=== PATIENT | male | born 1935 | race Two or more races ===

== ENCOUNTER 2024-04-28 22:25 | Emergency (ER) | payer MEDICARE, MEDICAID, SELFPAY ==
[2024-04-28 22:31] VITALS: BP 157/83; PULSE 81; RESP 18; TEMP 37.3; O2SAT 96; BMI 25.0
[2024-04-28 22:42] VITALS: PULSE 95; RESP 19; O2SAT 98
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
[2024-04-28 23:25] LABS: Bilirubin,Urine Negative (Negative); Blood,Urine Negative (Negative); Clarity,Urine Clear (Clear/Hazy); Collection Type, Urine Clean Catch; Color,Urine Lt-Yellow (Lt Yel-Yel); Glucose, Urine Negative (Negative); Ketones,Urine Negative (Negative); Leukocyte Esterase,Urine Negative (Negative); Nitrite,Urine Negative (Negative); PH,Urine 6.5 (5.0-7.0); Protein,Urine Trace (Neg - Trace); RBC,Urine 1 /hpf (0-3); Specific Gravity,Urine 1.014 (1.001-1.035); Squamous Epithelial Cell,Urine 0 /hpf (0-5); Urobilinogen,Urine Negative mg/dL (0.0-1.0); WBC,Urine 1 /hpf (0-5)
[2024-04-28 23:47] LABS: Basophils # (Auto) 0.1 Thou/mm3 (0.0-0.2); Basophils % (Auto) 1 % (0-2.5); Eosinophils # (Auto) 0.1 Thou/mm3 (0.0-0.5); Eosinophils % (Auto) 2 % (0-10); Hematocrit 39.6 % (41.0-53.0); Hemoglobin 14.2 g/dL (13.5-16.0); Immature Granulocytes % (Auto) 0 % (0-0); Immature Granulocytes Auto 0.02 Thou/mm3 (0.00-0.00); Lymphocytes # (Auto) 1.5 Thou/mm3 (1.0-4.8); Lymphocytes % (Auto) 18 % (10-50); Mean Corpuscular HGB Conc 35.9 g/dl (31.0-37.0); Mean Corpuscular Hemoglobin 31.1 pg (25.0-35.0); Mean Corpuscular Volume 87 fL (80-100); Monocytes # (Auto) 0.7 Thou/mm3 (0.0-0.8); Monocytes % (Auto) 8 % (0-12); Neutrophils # (Auto) 6.2 Thou/mm3 (1.8-7.7); Neutrophils % (Auto) 72 % (37-80); Nucleated Red Blood Cell % 0 /100 WBC (0); Platelet Count 186 Thou/mm3 (140-440); RDW Standard Deviation 40.1 fL (35.1-43.9); Red Blood Count 4.57 Miln/mm3 (4.50-5.90); White Blood Count 8.7 Thou/mm3 (3.8-10.6)
--- NOTE | 2024-04-28 23:53 | PC.NURSE ---
Pt given sandwich, juice, pudding and water. Tolerating well.
[2024-04-28 23:59] LABS: Alanine Aminotransferase 18 U/L (10-49); Albumin, Serum 4.6 gm/dL (3.4-4.8); Albumin/Globulin Ratio 1.6 (1.2-2.2); Alkaline Phosphatase 83 U/L (46-116); Anion Gap 9 (7-16); Aspartate Amino Transferase 24 U/L (0-34); BUN/Creatinine Ratio 16 Ratio (12-20); Bilirubin,Total 0.5 mg/dL (0.3-1.2); Blood Urea Nitrogen 13 mg/dL (9-23); Calcium 10.2 mg/dL (8.3-10.6); Calcium (Corrected) 10.2 mg/dL (8.5-10.1); Carbon Dioxide 26.4 mMol/L (20.0-31.0); Chloride 104 mMol/L (98-107); Creatinine (Component) 0.8 mg/dL (0.6-1.3); Estimated Creatinine Clearance 55.5 mL/min (>60); Globulin 2.8 gm/dL (2.3-3.5); Glucose 106 mg/dL (74-106); Osmolality,Calculated 277 (275-295); Potassium 3.6 mMol/L (3.4-5.1); Sodium 139 mMol/L (136-145); Total Protein 7.4 gm/dL (5.7-8.2); eGFR > 60 See Note
--- NOTE | 2024-04-29 00:31 | PC.NURSE ---
Pt asking why he is here, asked if he was going to shelter. Reassured pt that he is not going to shelter and that he will be sleeping here tonight to keep him safe. Pt given warm blankets and is now resting.
[2024-04-29 00:42] LABS: Alcohol, Urine Negative (Negative); Amphetamine/Methamp Scrn,U Negative (Negative); Barbiturate Screen,Urine Negative (Negative); Benzodiazepines Screen,Urine Negative (Negative); Benzoylecgonine Screen, Ur Negative (Negative); Fentanyl Screen,Urine Negative (Negative); Opiate Screen,Urine Negative (Negative); THC Screen,Urine Negative (Negative)
[2024-04-29 05:20] VITALS: BP 174/66; PULSE 73; RESP 18; TEMP 36.7; O2SAT 95
[2024-04-29 06:38] LABS: Amylase 94 U/L (30-118); Lipase 41 U/L (12-53)
[2024-04-29 08:21] VITALS: BP 166/75; BP 167/73; PULSE 54; RESP 16; TEMP 36.3; O2SAT 99
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
--- NOTE | 2024-04-29 09:43 | EDNOTE_ITS ---
Emergency Room Addendum Addendum Narrative: Patient was signed out to me from Dr. dangelo at 6:00 this morning pending mental health evaluation. She added that the patient has been medically cleared by her to see mental health. Please see her note. CBC unremarkable. CMP and lipase negative. U tox negative. UA negative. Alcohol negative. 9:40 AM, hubert child welfare social worker/mental health cytogenetic technologist told me that the patient can go home. He had already made arrangement with the patient's daughter she will come and pick him up from here. The patient's daughter requested medication to relax the patient while in care home. And I agree to 1 mg of Ativan by mouth. Patient is alert awake oriented x 4 GCS of 15 and answer question well. Hubert also added that the patient has an appointment to see his neurologist next week. Hubert also DC 5150 Diagnosis: Dementia 5150 cleared Condition: Stable and improved DC instruction: The patient will be discharged home. Daughter will be driving him. Follow-up with his medical doctor and or neurologist. Return the nearest ER for any problem
[2024-04-29] MEDS: LORazepam 0.5 MG TABLET 1 MG PO (10:06)
[2024-04-29 10:20] VITALS: BP 162/72; PULSE 56; RESP 18; TEMP 36.5; O2SAT 97
[2024-04-29 12:05] VITALS: BP 166/70; PULSE 60; RESP 14; TEMP 36.4; O2SAT 98
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
--- NOTE | 2024-05-01 14:53 | PC.CC ---
Pts chart accessed to update crisis stats and logs.
== END 2024-04-29 12:05 | disposition home or self-care (01) ==
PROVIDERS: Emergency Medicine; Emergency Provider Emergency Medicine
DX: F03.90 Unspecified dementia, unspecified severity, without behavioral disturbance, psychotic disturbance, mood disturbance, and anxiety (principal)
CPT/HCPCS: 36415; 80053; 80307; 80320; 81001; 82150; 83690; 85025; 96127; 99284; A9270; G0480

== ENCOUNTER 2025-01-10 01:40 | Inpatient (IN) | payer MEDICARE, MEDICAID, SELFPAY ==
[2025-01-10] VITALS (13 sets, daily range): BP systolic 128–165; BP diastolic 53–76; PULSE 51–97; RESP 14–96; TEMP 36.1–36.9; O2SAT 91–98; BMI 21.5
--- NOTE | 2025-01-10 01:41 | PD.EDPSYCH ---
ED Psych RME/HPI General Chief Complaint: Suicidal Stated Complaint: MENTAL EVALUATION Time Seen by Provider: 01/10/25 02:12 Arrival date/time: 01/10/25 01:40 RME / HPI RME / HPI Narrative: See [facility] for Dr. Davis's HPI documentation. Related Data Home Medications ?Medication ?Instructions ?Recorded ?Confirmed nitrofurantoin 100 mg PO Q12H 01/10/25 01/10/25 monohydrate/macrocrystals 100 mg capsule phenazopyridine 100 mg tablet 100 mg PO Q8H PRN bladder pain 01/10/25 01/10/25 Allergies Allergy/AdvReac Type Severity Reaction Status Date / Time No Known Allergies Allergy Verified 07/12/19 09:15 Review of Systems Review of Systems Systems Reviewed: All systems reviewed, normal except as documented Past Medical History Past Medical History NEUROLOGIC: Positive Neurological Disorders, Dementia and Head Trauma (2004); Negative Seizures CARDIAC: Positive Cardiac Disorders and Heart Murmur; Negative Congestive Heart Failure RESPIRATORY: Negative Chronic Obstructive Pulmonary Disease (COPD) GASTROINTESTINAL: Positive Gastrointestinal Disorders and Gastroesophageal Reflux Disease GENITOURINARY: Negative Genitourinary Disorders or Renal Disease MUSCULOSKELETAL: Negative Musculoskeletal Disorders ENT: Positive Cataracts and Head Trauma (2004) ENDOCRINE: Negative Endocrine Disorders, Diabetes Mellitus Type 1 or Diabetes Mellitus Type 2 HEMATOLOGIC: Negative Blood Disorders or Clotting Problems OTHER HISTORY: Negative Hospitalization, Autoimmune Disease, Shingles, Blood Transfusions, Blood Transfusion Reaction, Anesthesia Reactions, MRSA, Vancomycin-Resistant Enterococci or Cancer Family History FAMILY HISTORY: Positive Family Surgery; Negative Family Psychiatric Problems, Family Respiratory Disorders, Family Cardiac Disorders or Family Cancer Surgical History SURGICAL: Positive Eye Surgery (cataract); Negative Endocrine Surgery, Abdominal Surgery, Nephrectomy, Joint Replacement, Neurologic Surgery or Vasectomy Social History SMOKING STATUS: Former smoker ED Exam Narrative Physical exam: See [facility] for Dr. Davis's physical exam documentation. Course Quality Measures none Orders Category Date Time Status Admit to Inpatient Status Routine Admission 01/10/25 11:03 Active Patient Condition Routine Admission 01/10/25 12:26 Ordered Bedside COVID-19 Antigen Test NOW Care 01/10/25 01:49 Active Bedside Influenza A&B Antigen Test NOW Care 01/10/25 01:49 Completed Decorative Engraver Apprentice Q4H START 00 Care 01/10/25 11:53 Active EKG (ED ONLY) *Do not use* NOW Care 01/10/25 01:51 Completed [place] to [place] Routine Care 01/10/25 05:17 Ordered Notify provider NEEDED Care 01/10/25 12:26 Active Saline [Insert IV] NOW Care 01/10/25 01:49 Active Straight [In and Out Catheter] X1 Care 01/10/25 01:49 Completed Strict Intake and Output Routine Care 01/10/25 12:36 Ordered Referral Physical Therapy Stat Cons 01/10/25 07:41 Completed Diet Renal Diet 01/10/[address] chest abdomen pelvis wo Stat Exams 01/10/25 01:[address] head/brain wo con Stat Exams 01/10/25 09:[address] lumbar spine wo con Stat Exams 01/10/25 01:51 Completed EKG (ED Only) Stat Exams 01/10/25 01:51 Ordered XR chest 1V portable Stat Exams 01/10/25 01:51 Completed Acetaminophen Stat Lab 01/10/25 02:12 Completed Alcohol, Blood Medical Stat Lab 01/10/25 02:12 Completed BNP [B-Type Natriuretic Peptide] Stat Lab 01/10/25 02:09 Completed Beta Hydroxybutyrate Stat Lab 01/10/25 02:12 Completed Bilirubin,Direct Stat Lab 01/10/25 02:12 Completed Blood Culture (Lab) Stat Lab 01/10/25 02:09 Received CBC AM DRAW Lab 01/11/25 05:00 Ordered CBC AM DRAW Lab 01/12/25 05:00 Ordered CBC AM DRAW Lab 01/13/25 05:00 Ordered CBC AM DRAW Lab 01/14/25 05:00 Ordered CBC AM DRAW Lab 01/15/25 05:00 Ordered CBC Stat Lab 01/10/25 02:09 Completed CMP [Comprehensive Metabolic Panel] Stat Lab 01/10/25 02:12 Completed CRP [C-Reactive Protein] Stat Lab 01/10/25 02:12 Completed Comprehensive Metabolic Panel AM DRAW Lab 01/11/25 05:00 Ordered Comprehensive Metabolic Panel AM DRAW Lab 01/12/25 05:00 Ordered Comprehensive Metabolic Panel AM DRAW Lab 01/13/25 05:00 Ordered Comprehensive Metabolic Panel AM DRAW Lab 01/14/25 05:00 Ordered Comprehensive Metabolic Panel AM DRAW Lab 01/15/25 05:00 Ordered Drug Screen,Urine Stat Lab 01/10/25 02:29 Completed ESR [Sed Rate (ESR)] Stat Lab 01/10/25 02:09 Completed Free T3 Stat Lab 01/10/25 02:12 Completed Free T4 (Free Thyroxine) Stat Lab 01/10/25 02:12 Completed Lactate (Lactic Acid) Stat Lab 01/10/25 02:12 Completed Lipase Stat Lab 01/10/25 02:12 Completed Magnesium AM DRAW Lab 01/11/25 05:00 Ordered Magnesium AM DRAW Lab 01/12/25 05:00 Ordered Magnesium AM DRAW Lab 01/13/25 05:00 Ordered Magnesium AM DRAW Lab 01/14/25 05:00 Ordered Magnesium AM DRAW Lab 01/15/25 05:00 Ordered Magnesium Stat Lab 01/10/25 02:12 Completed Phosphorous AM DRAW Lab 01/11/25 05:00 Ordered Phosphorous AM DRAW Lab 01/12/25 05:00 Ordered Phosphorous AM DRAW Lab 01/13/25 05:00 Ordered Procalcitonin Stat Lab 01/10/25 02:12 Completed Salicylate Stat Lab 01/10/25 02:12 Completed TSH [Thyroid Stimulating Hormone] Stat Lab 01/10/25 02:12 Completed Troponin I Stat Lab 01/10/25 02:12 Completed UA, C/S IF [Urinalysis, C/S if Indicated] Stat Lab 01/10/25 02:29 Completed Urine Culture Stat Lab 01/10/25 02:29 Received Acetaminophen Tab [Tylenol Tab] Med 01/10/25 12:36 Active 650 mg PO Q6H PRN Acetaminophen Tab [Tylenol Tab] Med 01/10/25 12:36 Active 650 mg PO Q6H PRN Ondansetron Inj [Zofran Inj] Med 01/10/25 12:36 Active 4 mg IVP Q6H PRN Sodium Chloride 0.9% 1000 ml [Ns] 1,000 ml Med 01/10/25 12:45 Active IV 75 mls/hr Sodium Chloride 0.9% 1000 ml [Ns] 1,000 ml Med 01/10/25 01:50 Discontinued IV 999 mls/hr Sodium Chloride 0.9% 1000 ml [Ns] 1,000 ml Med 01/10/25 09:33 Discontinued IV 999 mls/hr cefTRIAXone/D5w 1gm IV premix [Rocephin/D5w 1gm IV Med 01/10/25 09:33 Discontinued premix] 1 gm in 50 ml IV X1 Code Status Routine Oth 01/10/25 12:26 Ordered Late Tray Request Routine Oth 01/10/25 09:20 Active Oxygen Delivery DAILY RT 01/10/25 12:38 Active Referral Rocket Engine Tester NOW 01/10/25 07:40 Active Vital Signs Vital signs: Vital Signs Temperature 97.7 F 01/10/25 01:44 Pulse Rate 68 01/10/25 01:44 Respiratory Rate 18 01/10/25 01:44 Blood Pressure 162/74 H 01/10/25 01:44 Pulse Oximetry (%) 94 L 01/10/25 01:44 Oxygen Delivery Method Room Air 01/10/25 01:44 Psych MDM Narrative MDM Narrative:: This section includes all my notes and documentations, including HPI, PE, and ED course. Addison Davis MD HPI: 89yo male with a history of dementia BIBA from home here for aggressive behavior for several days.. Tonight, daughter found the patient with a belt around his neck. No other obvious complaints. Can't obtain history from the patient due to dementia. Daughter is not present. ROS: Can't obtain history from the patient due to dementia. Physical Exam: General: Alert and oriented X 1. No acute distress when remaining still. Eyes: Conjunctivae and lids clear. PERRL. EOMI. ENT: No nasal congestion. Neck: Supple. Heart: RRR. Lungs: No respiratory distress. Good air movement. No rhonchi, wheezing, rales. Abdomen: Soft and nontender. Normal bowel sounds. No distension. No rebound or guarding. Back: No tenderness. Skin: Warm and dry. Neuro: Alert and oriented X 3. Cranial nerves II through XII grossly normal. No peripheral motor deficits. I reviewed EMS notes. I reviewed all diagnostic test results. My interpretation of the EKG is sinus rhythm with nonspecific changes. My interpretation of the chest x-ray is increased bronchial markings. Blood tests remarkable for WBC 12.7, ESR 31, Creatinine 5.3, CRP 8.7. UA remarkble for positive nitrites, positive leukocyte esterase, 917 RBCs, 6 WBCs, and rare bacteria. At this point, diagnoses include: Suicidal behavior JAMEY UTI Dementia Treatment here included: IV fluid I discussed the case with our wooden frame builder (Dr. Barnse). About the presentation and exam and diagnostics and treatments here. And possible need of further care in the hospital. Recommended admission to hospitalist service with indwelling Rincon. CT scans are pending At 6 AM on 01/10/2025, the care of the patient was transferred to Dr. Pedroza. Addison Davis MD Patient data External records reviewed:: [facility] previous records (Per chart review, patient was seen here on 04/29/24 for abdominal pain.) and EMS form Clinical information provided by:: patient Social determinants that could affect healthcare access:: none Patient has the following chronic illnesses:: dementia How is presenting disease/condition affected by chronic disease/condition?: exacerbated by Evaluation data The following diagnostics were reviewed and interpreted by me:: lab results, radiology exam(s) and EKG tracing(s) (My interpretation of the EKG is: Sinus rhythm (66 bpm) with nonspecific ST-T changes. Addison Davis MD) Lab and/or radiology exams considered but not ordered:: none Interpretation Summary: I reviewed all diagnostic test results. My interpretation of the EKG is sinus rhythm with nonspecific changes. My interpretation of the chest x-ray is increased bronchial markings. Blood tests remarkable for WBC 12.7, ESR 31, Creatinine 5.3, CRP 8.7. UA remarkble for positive nitrites, positive leukocyte esterase, 917 RBCs, 6 WBCs, and rare bacteria. CT scans are pending. Medications / Prescriptions Medications or Prescriptions considered but not ordered:: none Medication administrations:: Medication Administration History Acetaminophen (Acetaminophen 325 Mg Tablet) 650 mg PO Q6H PRN PRN Reason: Fever >101.5 Stop: 02/09/25 12:35 Acetaminophen (Acetaminophen 325 Mg Tablet) 650 mg PO Q6H PRN PRN Reason: PAIN SCALE 1-3 (mild Stop: 02/09/25 12:35 Finasteride (Finasteride 5 Mg Tablet) 5 mg PO QDAY GWENDOLYN Stop: 02/09/25 12:44 Last Admin: 01/10/25 13:32 Dose: 5 mg Documented By: PATRICIA Sodium Chloride (Ns) 1,000 mls @ 75 mls/hr IV .[id number] GWENDOLYN Stop: 02/09/25 12:44 Last Admin: 01/10/25 13:32 Dose: 75 mls/hr Documented By: PATRICIA Ceftriaxone Sodium/Dextrose (Rocephin/D5w 1gm Iv Premix) 1 gm in 50 mls @ 100 mls/hr IV QDAY GWENDOLYN Stop: 01/18/25 08:59 Ondansetron HCl (Ondansetron Inj 2 Mg/Ml Inj 2 Ml) 4 mg IVP Q6H PRN; Protocol PRN Reason: NAUSEA OR VOMITING Stop: 02/09/25 12:35 Tamsulosin HCl (Tamsulosin Hcl 0.4 Mg Capsule) 0.4 mg PO QDAY GWENDOLYN Stop: 02/09/25 12:44 Last Admin: 01/10/25 13:32 Dose: 0.4 mg Documented By: [email or web address] Discontinued Medications Sodium Chloride (Ns) 1,000 mls @ 999 mls/hr IV .Q1H1M ONE Stop: 01/10/25 02:50 Last Infusion: 01/10/25 03:30 Dose: Infused Documented By: Admin: 01/10/25 02:22 Dose: 999 mls/hr Documented By: ENMANUEL Sodium Chloride (Ns) 1,000 mls @ 999 mls/hr IV .Q1H1M ONE Stop: 01/10/25 10:33 Last Infusion: 01/10/25 12:10 Dose: Infused Documented By: Admin: 01/10/25 11:06 Dose: 999 mls/hr Documented By: TITA Ceftriaxone Sodium/Dextrose (Rocephin/D5w 1gm Iv Premix) 1 gm in 50 mls @ 100 mls/hr IV X1 ONE Stop: 01/10/25 10:02 Last Infusion: 01/10/25 11:40 Dose: Infused Documented By: Admin: 01/10/25 11:05 Dose: 100 mls/hr Documented By: TITA From ks, patient received IV fluid. Consultations Consultation(s) initiated? (list below): Yes Consultation #1 (Physician, Specialty, Details): I discussed the case with our wooden frame builder (Dr. Barnes). About the presentation and exam and diagnostics and treatments here. And possible need of further care in the hospital. Recommended admission to hospitalist service with indwelling [place]. Diagnosis Psych Differential Diagnosis: acute psychosis, chronic schizophrenia, suicidal ideation, bipolar disorder, depression, drug-induced psychotic disorder and acute anxiety Most likely diagnosis given after review of the tests above:: At this point, diagnoses include: Suicidal behavior JAMEY UTI Dementia Admission Indicated Admission indicated?: not indicated Explain why admission is indicated or not indicated:: CT scans are pending. Admission Request Was there a request for admission?: No Disposition Plan Disposition Plan: other (specify) (Signed out to Dr. Pedroza at 6 AM.) Discharge Plan Plan Patient Disposition: Admit Acute Care w/in Hospital Problem List Clinical Impression: JAMEY (acute kidney injury), Suicidal behavior, Dehydration, Acute UTI
--- NOTE | 2025-01-10 01:51 | EKG_ITS ---
[facility] Test Date: 2025-01-10 Pat Name: CLOVER FRY Department: Room: - Gender: Male Track Grinder: : 1935 Requested By: Addison Riddle Order Number: [id number] Reading MD: Addison Riddle Measurements Intervals [place] Rate: 66 P: 51 NE: 159 QRS: -39 QRSD: 112 T: 74 QT: 428 QTc: 449 Interpretive Statements SINUS RHYTHM POSSIBLE LEFT ATRIAL ENLARGEMENT [-0.1mV P-WAVE IN V1/V2] LEFT AXIS DEVIATION [QRS AXIS < -30] POSSIBLE LEFT VENTRICULAR HYPERTROPHY [VOLTAGE CRITERIA PLUS LAE OR QRS WIDENING] Compared to ECG 07/12/2019 09:49:37 Sinus bradycardia no longer present ST (T wave) deviation no longer present /store/S0/[id number]/ecg/[id number].pdf
--- NOTE | 2025-01-10 01:51 | XR_ITS ---
Examination: CT chest, without intravenous contrast. CT abdomen, without intravenous contrast. CT pelvis, without intravenous contrast. 2-D sagittal and coronal reconstructions. 3-D reconstructions. Date and time of exam:January 10, 2025 0426 hours INDICATIONS: Chest abdominal pain today altered mental status CTDI vol (mgy) 7.94 DLP (MGycm)587 Technique: Multiple CT images, 3.0 mm slice thickness, obtained chest, abdomen, pelvis, with the high-resolution 64 slice scanner.. Sagittal and coronal 2-D reconstructions are obtained. 3-D reconstructions Low dose protocols were performed. One or more of the following dose reduction techniques were used; automated exposure control, adjustment of the mA and/or KV according to patient size, use of iterative reconstruction technique. Findings: Thoracic aortic calcification no aneurysmal dilatation Pulmonary artery segments are not enlarged. No pneumonia, pulmonary edema or pleural disease. No visualized liver or splenic lesion Suspicious for gallstones No pancreatic mass Mild to moderate bilateral hydronephrosis with perinephric stranding Aorta calcification no aneurysmal dilatation No pericecal inflammatory change Distended urinary bladder Abnormal prostate, enlarged AP dimension 6.3 cm with irregular contour IMPRESSION: No pneumonia pulmonary edema or pleural disease Recommend hepatobiliary sonography to confirm gallstones Mild to moderate hydronephrosis likely secondary to markedly distended urinary bladder Marked prostatomegaly which may be producing the urinary bladder versus vesicoureteral reflux and urinary tract infection, clinical correlation advised
--- NOTE | 2025-01-10 01:51 | XR_ITS ---
Examination: AP chest single view TECHNIQUE: AP portable semiupright chest single view Date and time: January 10, 2025 1444 hours INDICATIONS: Shortness of breath today. FINDINGS: Mild accentuation bronchovascular markings. Normal heart size. Mild prominent central pulmonary arteries Prominent osteopenia IMPRESSION: Basilar bronchitis pattern
--- NOTE | 2025-01-10 01:51 | XR_ITS ---
Examination: CT lumbar spine, without contrast. 2-D sagittal reconstructions. 2-D coronal reconstructions. 3-D reconstructions. Date and time of exam:January 10, 2025 0427 hours INDICATIONS: Onset back pain this week CTDI: vol (mGy):22.7 DLP: (mGycm):584 Technique: Multiple 1.25 mm axial sections of the lumbar spine without intravenous contrast. have been obtained. 2-D sagittal and coronal reconstructions have been obtained. 3-D reconstructions have been obtained. Low dose protocols were performed. One or more of the following dose reduction techniques were used; automated exposure control, adjustment of the mA and/or KV according to patient size, use of iterative reconstruction technique. Findings: No lumbar fracture. Severe osteopenia. Advanced degenerative disc disease diffusely L5-S1 3 mm central lumbar disc bulge L4-L5 severe overall spinal stenosis, axial image 79, 4 mm central lumbar disc bulge, facet arthropathy and thickening of ligamentum flavum with severe left L4 ganglionic compression L3-L4 mild bilateral L3 ganglionic compression secondary to neural foraminal stenosis IMPRESSION: No acute lumbar fracture L4-L5 severe overall spinal stenosis L3-L4 mild bilateral L3 ganglionic compression
[2025-01-10] MEDS: SODIUM CHLORIDE 0.9% 1000 ML 1,000 ML 999 ML IV ×2 (02:22→11:06)
[2025-01-10 02:23] LABS: Lactate (Lactic Acid) 1.0 mMol/L (0.4-2.0)
[2025-01-10 02:25] LABS: Beta Hydroxybutyrate 0.4 mmol/L (<0.6)
[2025-01-10 02:25] LABS: Basophils # (Auto) 0.0 Thou/mm3 (0.0-0.2); Basophils % (Auto) 0 % (0-2.5); Eosinophils # (Auto) 0.2 Thou/mm3 (0.0-0.5); Eosinophils % (Auto) 2 % (0-10); Hematocrit 38.7 % (41.0-53.0); Hemoglobin 13.5 g/dL (13.5-16.0); Immature Granulocytes Auto 0.06 Thou/mm3 (0.00-0.00); Lymphocytes # (Auto) 1.3 Thou/mm3 (1.0-4.8); Lymphocytes % (Auto) 11 % (10-50); Mean Corpuscular HGB Conc 34.9 g/dl (31.0-37.0); Mean Corpuscular Hemoglobin 31.2 pg (25.0-35.0); Mean Corpuscular Volume 89 fL (80-100); Monocytes # (Auto) 1.4 Thou/mm3 (0.0-0.8); Monocytes % (Auto) 11 % (0-12); Neutrophils # (Auto) 9.6 Thou/mm3 (1.8-7.7); Neutrophils % (Auto) 76 % (37-80); Nucleated Red Blood Cell # 0.00 Thou/mm3 (0.00-0.00); Nucleated Red Blood Cell % 0 /100 WBC (0); Platelet Count 138 Thou/mm3 (140-440); RDW Standard Deviation 41.4 fL (35.1-43.9); Red Blood Count 4.33 Miln/mm3 (4.50-5.90); White Blood Count 12.7 Thou/mm3 (3.8-10.6)
[2025-01-10 02:34] LABS: Sed Rate (ESR) 31 mm/hr (0-20)
[2025-01-10 02:36] LABS: Collection Type, Urine Clean Catch; Squamous Epithelial Cell,Urine 0 /hpf (0-5)
[2025-01-10 02:46] LABS: Bacteria,Urine Rare; Bilirubin,Urine Negative (Negative); Blood,Urine 3+ (Negative); Clarity,Urine Turbid (Clear/Hazy); Color,Urine Drk-Yellow (Lt Yel-Yel); Glucose, Urine Negative (Negative); Ketones,Urine Negative (Negative); Leukocyte Esterase,Urine Positive (Negative); Nitrite,Urine Positive (Negative); PH,Urine 5.5 (5.0-7.0); Protein,Urine Trace (Neg - Trace); RBC,Urine 917 /hpf (0-3); Specific Gravity,Urine 1.016 (1.001-1.035); Urobilinogen,Urine Negative mg/dL (0.0-1.0); WBC,Urine 6 /hpf (0-5)
[2025-01-10 02:47] LABS: Culture Indicated,Urine Yes
[2025-01-10 02:50] LABS: B-Type Natriuretic Peptide 57 pg/mL (0-100)
[2025-01-10 02:51] LABS: Acetaminophen < 2.0 mcg/mL (10.0-20.0); Alanine Aminotransferase 27 U/L (10-49); Albumin, Serum 4.2 gm/dL (3.4-4.8); Albumin/Globulin Ratio 1.8 (1.2-2.2); Alcohol, Blood Medical < 3.0 mg/dL (0-10.0); Alkaline Phosphatase 78 U/L (46-116); Anion Gap 15 (7-16); Aspartate Amino Transferase 20 U/L (0-34); BUN/Creatinine Ratio 10 Ratio (12-20); Bilirubin,Direct 0.4 mg/dL (0.0-0.3); Bilirubin,Total 1.2 mg/dL (0.3-1.2); Blood Urea Nitrogen 52 mg/dL (9-23); C-Reactive Protein 8.7 mg/dL (0.0-0.9); Calcium 9.3 mg/dL (8.3-10.6); Calcium (Corrected) 9.3 mg/dL (8.5-10.1); Carbon Dioxide 24.2 mMol/L (20.0-31.0); Chloride 97 mMol/L (98-107); Creatinine (Component) 5.3 mg/dL (0.6-1.3); Globulin 2.4 gm/dL (2.3-3.5); Glucose 133 mg/dL (74-106); Lipase 28 U/L (12-53); Magnesium 2.4 mg/dL (1.6-2.6); Osmolality,Calculated 287 (275-295); Potassium 3.8 mMol/L (3.4-5.1); Procalcitonin 0.19 ng/ml (0.0-0.49); Salicylate < 3.0 mg/dL; Sodium 136 mMol/L (136-145); Thyroid Stimulating Hormone 0.46 uIU/mL (0.55-4.78); Total Protein 6.6 gm/dL (5.7-8.2); Troponin I < 0.020 ng/mL (0.0-0.045); eGFR 10 See Note
[2025-01-10 03:00] LABS: Amphetamine/Methamp Scrn,U Negative (Negative); Barbiturate Screen,Urine Negative (Negative); Benzodiazepines Screen,Urine Negative (Negative); Benzoylecgonine Screen, Ur Negative (Negative); Fentanyl Screen,Urine Negative (Negative); Opiate Screen,Urine Negative (Negative); THC Screen,Urine Negative (Negative)
[2025-01-10 03:32] LABS: Free T3 2.0 pg/mL (2.3-4.2); Free T4 (Free Thyroxine) 1.67 ng/dL (0.89-1.76)
--- NOTE | 2025-01-10 07:41 | EDNOTE_ITS ---
Emergency Room Addendum <Chana Pedroza MD - Last Filed: 01/10/25 07:43> Addendum Narrative: Patient was pending placement in [place] however this was assisted living and patient is in need of dementia care. Plan for placement locally in appropriate facility for patient needs. <Manasa [place] - Last Filed: 01/10/25 11:55> Addendum Narrative: 0600: Care assumed from Dr. Davis, the previous shift emergency physician. Past medical, surgical, social and family history reviewed. Vitals and home medications reviewed. I will assume the care of the patient at this time, [facility] social worker consultation for SNF placement. Please refer to the emergency department record for history and examination from initial visit.?The following addendum documentation note is intended to reflect any pending information, findings, or radiology results not included in the patient?s initial chart. Patient was pending placement in [place] however this was assisted living and patient is in need of dementia care. Plan for placement locally in appropriate facility for patient needs. I reviewed patients labs and appears to have a UTI and JAMEY; creatinine 5.3, BUN 52, eGFR 10. I spoke with residents working with hospitalist Dr. Goddard. Discussed patients PMHx, HPI, ED course, exam findings, labs, and radiology results. The hospitalist agree to accept the patient for admission.
--- NOTE | 2025-01-10 08:59 | PC.NURSE ---
Patient lying in gurney quietly, not answering all questions appropriately, daughterMelissa at bedside states she called and ambulance because patient was threatening to choke with his belt because he got upset with her. Per Melissa states patient lives in [place] alone and has a careprovider who checks in on him. Per daughter states she brought him to her house for a visit, Per Daughter states patient has h/o dementia and stays up all night. Currenlty patient alert to person and who his daughter is but not alert to place or time, patient denies pain, denies SI and HI, does not know why he is here. Skin is cool dry and pink. S/S aware of consult and daughter requesting to speak with s/s. 1:[address] for patient safety.
--- NOTE | 2025-01-10 09:21 | PC.NURSE ---
PT at bedside for evaluation
--- NOTE | 2025-01-10 09:24 | XR_ITS ---
Examination: CT brain head without contrast. 2-D sagittal coronal reconstructions Date and time of exam:January 10, 2025, 1005 hours, comparison March 11, 2018 CTDI: vol (mGy):51 DLP: (mGycm):994 Technique: Multiple CT axial sections of the brain have been obtained, 5 mm slice thickness. Contrast has not been administered. 2-D sagittal, coronal reconstructions have been obtained Low dose protocols were performed. One or more of the following dose reduction techniques were used; automated exposure control, adjustment of the mA and/or KV according to patient size, use of iterative reconstruction technique. Findings: Mild to moderate ventricular enlargement. Intra-axial or extra-axial hemorrhage density is not seen. No mass effect or midline shift Basal cisterns are not remarkable. Fourth ventricle is midline. Cranial vault intact. Impression: Negative for acute hemorrhage, mass effect or midline shift Advise clinical correlation and follow-up accordingly
--- NOTE | 2025-01-10 09:27 | PC.NURSE ---
Dr. Pedroza talking with patients daughter, stacia about patient being admitted to the hospital.
--- NOTE | 2025-01-10 11:02 | PC.CC ---
ASW completed an initial assessment with pt and pts decision maker/daughter at bedside Cherelle Hernandez [phone]. ASW explained to pt and daughter that pt will be admitted to the hospital and necessary questions will be asked in order to prepare pt for d/c when ready. Pt and Cherelle understood. Pt identified his daughter Cherelle as his point of contact and decision maker. Pt reported he resides in [place] and lives on his own. Pt states he receives SS services and gets 100 hours a month. Cherelle reports the pt is diagnosed with dementia and is needing SNF placement upon d/c from [facility]. Cherelle reported she was in the process of an assisted living facility in [place], but after the high cost per month and deciding that assisted living was not appropriate for the pt, she and pt changed their mind about possibly placing the pt in the [place] facility. Pt and daughter Cherelle would like to be placed in a facility located in [place], specifically requested [facility]. Cherelle provided copies of Power of Insurance Loss Control Surveyor, Advanced Directive and ASW placed the documents in the pts chart. Cherelle also provided insurance information and pts current PCP information. Pt sees [facility] for Neurology services and his pharmacy is also located with [facility] [place] ([place]). Pt is a DNR code and the pts daughter Cherelle holds Power of Insurance Loss Control Surveyor and is the Decision Maker for the pt. Pt is supposed to use a rollator, cane, shower chair and bedside commode, however, according to Cherelle, the pt does not use them out of choice. Pt does not use O2. Pt receives social security benefits in the amount of $1200 and $800 in SSDI. Pt does not receive food stamps or any other source of income. Pt has strong support from his adult children. At this time there are no SS needs, however, pt will need SNF placement planning. Possible dementia locked facility, as pts daughter Cherelle stated pt does have a tendency to elope. Decision Maker: Cherelle Mccrayilla [phone]- pts daughter Point of Contact and Next of Kin: Cherelle Hernandez [phone]- pts daughter D/c Plan: SNF placement, 1st preference is [facility] PCP: [facility] ([facility]ala and Joni)
[2025-01-10] MEDS: cefTRIAXone/D5w 1gm IV premix 1 GM/50 ML BAG IV (11:05)
--- NOTE | 2025-01-10 12:17 | PC.NURSE ---
Hospitalists at [facility] to evaluate patient.
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
--- NOTE | 2025-01-10 13:13 | PC.PT ---
PT eval complete. Please see note for further details.
[2025-01-10] MEDS: TAMSULOSIN HCL 0.4 MG CAPSULE PO (13:32)
[2025-01-10] MEDS: FINASTERIDE 5 MG TABLET PO (13:32)
[2025-01-10] MEDS: SODIUM CHLORIDE 0.9% 1000 ML 1,000 ML 75 ML IV (13:32)
--- NOTE | 2025-01-10 20:32 | PC.NURSE ---
Pt daughter at bedside looking for pts money, she said that pt has $407 tom and a business card, me and KRISSY Garrett looked at the pts chart and belonging list, no money listed from ER and here at the floor only pts clothes and eyeglass. ER Belongings indicated locker #3, called Josafat Rivera, she went and looked at locker 3 in ED, nothing to found. I called ER staff Kina to looked at ED 18 coz pts was on that room, per Kina there is another pts in there already. I called DAVID Husain and let her know, she came and talked to pts daughter Cherelle. Money hasnt found yet.
[2025-01-11] VITALS (9 sets, daily range): BP systolic 112–147; BP diastolic 57–77; PULSE 50–67; RESP 15–92; TEMP 36.4–37; O2SAT 92–99; BMI 13.0
[2025-01-11] MEDS: SODIUM CHLORIDE 0.9% 1000 ML 1,000 ML 75 ML IV ×2 (01:46→16:08)
--- NOTE | 2025-01-11 04:56 | PC.NURSE ---
[facility] downtime occurred from 0200 to 0435.
[2025-01-11 05:39] LABS: Basophils # (Auto) 0.0 Thou/mm3 (0.0-0.2); Basophils % (Auto) 0 % (0-2.5); Eosinophils # (Auto) 0.5 Thou/mm3 (0.0-0.5); Eosinophils % (Auto) 6 % (0-10); Hematocrit 34.5 % (41.0-53.0); Hemoglobin 11.9 g/dL (13.5-16.0); Immature Granulocytes Auto 0.05 Thou/mm3 (0.00-0.00); Lymphocytes # (Auto) 1.8 Thou/mm3 (1.0-4.8); Lymphocytes % (Auto) 21 % (10-50); Mean Corpuscular HGB Conc 34.5 g/dl (31.0-37.0); Mean Corpuscular Hemoglobin 31.2 pg (25.0-35.0); Mean Corpuscular Volume 91 fL (80-100); Monocytes # (Auto) 1.0 Thou/mm3 (0.0-0.8); Monocytes % (Auto) 12 % (0-12); Neutrophils # (Auto) 5.3 Thou/mm3 (1.8-7.7); Neutrophils % (Auto) 61 % (37-80); Nucleated Red Blood Cell # 0.00 Thou/mm3 (0.00-0.00); Nucleated Red Blood Cell % 0 /100 WBC (0); Platelet Count 120 Thou/mm3 (140-440); RDW Standard Deviation 41.3 fL (35.1-43.9); Red Blood Count 3.81 Miln/mm3 (4.50-5.90); White Blood Count 8.6 Thou/mm3 (3.8-10.6)
[2025-01-11 06:10] LABS: Alanine Aminotransferase 18 U/L (10-49); Albumin, Serum 3.1 gm/dL (3.4-4.8); Albumin/Globulin Ratio 1.7 (1.2-2.2); Alkaline Phosphatase 59 U/L (46-116); Anion Gap 10 (7-16); Aspartate Amino Transferase 14 U/L (0-34); BUN/Creatinine Ratio 16 Ratio (12-20); Bilirubin,Total 0.8 mg/dL (0.3-1.2); Blood Urea Nitrogen 16 mg/dL (9-23); Calcium 8.5 mg/dL (8.3-10.6); Calcium (Corrected) 9.2 mg/dL (8.5-10.1); Carbon Dioxide 26.3 mMol/L (20.0-31.0); Chloride 108 mMol/L (98-107); Creatinine (Component) 1.0 mg/dL (0.6-1.3); Estimated Creatinine Clearance 48.3 mL/min (>60); Globulin 1.8 gm/dL (2.3-3.5); Glucose 89 mg/dL (74-106); Magnesium 1.9 mg/dL (1.6-2.6); Osmolality,Calculated 287 (275-295); Phosphorous 2.1 mg/dL (2.4-5.1); Potassium 3.7 mMol/L (3.4-5.1); Sodium 144 mMol/L (136-145); Total Protein 4.9 gm/dL (5.7-8.2); eGFR > 60 See Note
[2025-01-11] MEDS: FINASTERIDE 5 MG TABLET PO (08:08)
[2025-01-11] MEDS: TAMSULOSIN HCL 0.4 MG CAPSULE PO (08:08)
[2025-01-11] MEDS: NAPH,KPH MBDB 1 PACKET (1.5 GM) PO (08:09)
[2025-01-11] MEDS: cefTRIAXone/D5w 1gm IV premix 1 GM/50 ML BAG IV (08:10)
[2025-01-11] MEDS: Magnesium Sulfate 2 GM Ivpb 2 GM/50 ML BAG IV (08:50)
--- NOTE | 2025-01-11 11:48 | PC.CC ---
LATE NOTE: ED Room 18- Noman Hernandez [id number] is no longer a MH evaluation as per ER provider, as it was determined that the pt does not meet a MH eval based on his dementia diagnosis. Therefore, at this time the mental health evaluation was cancelled by Dr. Pedroza.
--- NOTE | 2025-01-11 15:53 | ESPR_ITS ---
<Statement entered by Dinah Manzo MD - 01/12/25 07:35> I discussed with and supervised the computer science intern physician who took care of this patient. I personally saw and examined the patient and discussed the assessment and plan with the entire medicine team, including my attending Dr. Goddard, I agree with most of the assessment and plan as documented below Dinah Manzo M.D. PGY-3 Disclaimer: Despite multiple revisions, due to the dictation software being used, the document bellow may not be free of grammatical errors including phonetic/typographic errors. However, this does not deter from our commitment to providing health care in the patient's best interest in mind. <Statement entered by Juliana Moody MD - 01/11/25 21:35> Note reviewed, I agree with most of its contents and agree with the patient's care as documented by Dr. Hdez. Patient examined at bedside. Encephalopathy 2/2 urinary retention has resolved. Today he is back to baseline per daughter at bedside. Continue IV ceftriaxone until urine culture results. Patient will need to continue skilled nursing cath at discharge to prevent urinary retention. The retention is most likely due to prostatomegaly (6.3 cm) and is going to need referral to see urology outpatient. JAMEY has resolved with adequate fluids--Cr 1.0. Plan to discharge next 24 hrs to [facility] for additional PT as well. The patient's management plan was discussed with my attending physician Dr. Goddard. Juliana Moody, PGY-2 Documentation for date of: 01/11/25 Subjective Subjective Interval history: 01/11/25: No acute events overnight. Vital signs remain stable. Patient was examined and evaluated at bedside today. Patient's mental status has imrpoved since yesterday. Patient is tolerating diet and has had adequate urinary output from gonzales. Patient's JAMEY has resolved--> Cr downtrended from 5.3 to 1.0. Patient does not have any complaints at this time. Patient's daughter at bedside, she was updated and all questions answered. Exam Vital Signs Temp Pulse Resp BP Pulse Ox O2 Del Method 97.8 F 63 18 130/60 98 Room Air 01/11/25 12:00 01/11/25 15:29 01/11/25 12:01/11/25 12:00 01/11/25 12:00 01/11/25 12:00 Narrative Exam General: 89 year old appearing male in no acute distress. HEENT: Normocephalic, atraumatic, mucous membranes moist. Rhinophyma Heart: Regular rate and rhythm, no murmurs. Distant heart sounds. Lungs: Clear to auscultation with no wheezing or crackles. No use of accessory muscles. Symmetric chest rise. Abdomen: Soft, nondistended, nontender. No guarding or rebound tenderness. Neurologic: Alert and oriented x2, no gross neurological deficit, and patient able to move all 4 extremities. No tremor. Extremities: No pretibial edema. Skin: No rash or ecchymoses. Psychiatric: Appropriate mood and affect Objective Labs 01/11/25 04:38 01/11/25 04:38 Labs: Laboratory Results - last 24 hr 01/11/25 04:38 WBC 8.6 RBC 3.81 L Hgb 11.9 L Hct 34.5 L MCV 91 MCH 31.2 MCHC 34.5 RDW Std Deviation 41.3 Plt Count 120 L Neut % (Auto) 61 Lymph % (Auto) 21 [place] % (Auto) 12 Eos % (Auto) 6 Baso % (Auto) 0 Neut # (Auto) 5.3 Lymph # (Auto) 1.8 [place] # (Auto) 1.0 H Eos # (Auto) 0.5 Baso # (Auto) 0.0 Immature Gran # (Auto) 0.05 H Absolute Nucleated RBC 0.00 Immature Gran % 1 H Nucleated RBC % 0 Sodium 144 Potassium 3.7 Chloride 108 H Carbon Dioxide 26.3 Anion Gap 10 BUN 16 Creatinine 1.0 D Estim Creat Clear Calc 48.3 L eGFR > 60 BUN/Creatinine Ratio 16 Glucose 89 Calculated Osmolality 287 Calcium 8.5 Corrected Calcium 9.2 Phosphorus 2.1 L Magnesium 1.9 Total Bilirubin 0.8 AST 14 ALT 18 Alkaline Phosphatase 59 D Total Protein 4.9 L Albumin 3.1 L D Globulin 1.8 L Albumin/Globulin Ratio 1.7 Quality Measures Quality Measures none Advance care planning discussed with:: child Assessment & Plan Assessment Current Active Medications: Generic Name Dose Route Start Last Admin Trade Name Freq PRN Reason Stop Dose Admin Acetaminophen 650 mg 01/10/25 12:36 Acetaminophen 325 Mg Tablet PO 02/09/25 12:35 Q6H PRN Fever >101.5 Acetaminophen 650 mg 01/10/25 12:36 Acetaminophen 325 Mg Tablet PO 02/09/25 12:35 Q6H PRN PAIN SCALE 1-3 (mild Finasteride 5 mg 01/10/25 12:45 01/11/25 08:08 Finasteride 5 Mg Tablet PO 02/09/25 12:44 5 mg QDAY [facility] Administration Sodium Chloride 1,000 mls @ 75 mls/hr 01/10/25 12:45 01/11/25 01:46 Ns IV 02/09/25 12:44 75 mls/hr .[id number] [facility] Administration Ceftriaxone Sodium/Dextrose 1 gm in 50 mls @ 100 mls/hr 01/11/25 09:00 01/11/25 08:10 Rocephin/D5w 1gm Iv Premix IV 01/18/25 08:59 100 mls/hr QDAY [facility] Administration Ondansetron HCl 4 mg 01/10/25 12:36 Ondansetron Inj 2 Mg/Ml Inj 2 Ml IVP 02/09/25 12:35 Q6H PRN NAUSEA OR VOMITING Protocol Tamsulosin HCl 0.4 mg 01/10/25 12:45 01/11/25 08:08 Tamsulosin Hcl 0.4 Mg Capsule PO 02/09/25 12:44 0.4 mg QDAY [facility] Administration Plan 89M with PMH of worsening dementia brought in from home in [place] for evaluation of aggressive and violent behavior x2 days. Found to have urinary retention, JAMEY and UTI admitted for acute encephalopathy secondary to post renal JAMEY vs UTI management. #Acute encephalopathy secondary to post renal urinary retention vs #UTI #JAMEY (Resolved) #Dementia #Mild to moderate hydronephrosis #Prostatomegaly Most of the hx was provided by pt's daughter since he is A&Ox2. Patient has become more aggressive and violent x2 days. Patient is not on any medications for his dementia. Recently diagnosed with UTI by PCP and prescribed with Macrobid, questionable if he has taken his medication correctly. UA positive for RBCs, leukocyte esterase, nitrites, WBCs and rare bacteria. Patient was noted to have urinary retention with 1100cc dark colored urine draining from the gonzales that was placed in the ED. CTAB shows Mild to moderate hydronephrosis likely secondary to markedly distended urinary bladder. Marked prostatomegaly which may be producing the urinary bladder versus vesicoureteral reflux and urinary tract infection. Cr of 5.3 (baseline of 0.8), BUN 52, WBC 12.7, CRP 8.7. Unremarkable head CT. Patient acute mental status changes could be due to acute encephalopathy in the setting of worsening dementia secondary to urinary retention 2/2 post renal prostatomegaly vs UTI. Patient JAMEY most likely due to post renal prostatomegaly vs dehydration. Patient's Cr improved to 1.0, and leukocytosis resolved to 8.6. Blood culture negative. Plan: - Continue with gonzales catheter - Strict I&Os - Renal diet - Pending urine cx - IVF NS maintenance at 75 - Continue Rocephin 1g qday (01/10/25-) - Continue Flomax 0.4 qday - Continue Finesteride 5 qday - CTM renal panel - Patient will need to follow up with an Urologist outpatient in regards to their prostatomegaly #Subclinical Hyperthyroidism TSH:0.46. Patient is asymptomatic. Plan: - Follow up outpatient Hospital management: Lines: peripheral IV Diet: Renal diet DVT prophylaxis: SCDs Disposition: acute encephalopathy in the setting of worsening dementia secondary to urinary retention 2/2 post renal prostatomegaly vs UTI management CODE STATUS: DNR Plan discussed with senior residents Drs. Manzo and Fransisco and attending physician Dr. Goddard. Reyna Hdez, DO PGY-1 Attending Provider Attestation/Addendum I have examined the patient, reviewed labs and imaging findings, discussed the case with the resident(s), and reviewed entered orders. I agree with the plan of care as outlined in this note, with these additional summaries/recommendations: Patient is a 89-year-old male with a medical history of dementia who presents to [facility] emergency department on 02/06/2025 with chief complaint of altered mental status. Patient and daughter seen at bedside. No acute overnight events. Patient's acute encephalopathy has significantly improved and is resolving. Patient does have underlying dementia at baseline. Per daughter he takes no medications. Continue frequent reorientation to prevent delirium. Acute encephalopathy secondary to acute urinary retention. CT abdomen and pelvis did reveal a significantly distended bladder, bilateral hydronephrosis, and prostatomegaly 6.3 cm. Acute urinary retention most likely secondary to prostatomegaly. Continue Flomax and finasteride. Continue Gonzales catheter. Urinalysis indicative of urinary tract infection. Continue IV antibiotic and follow-up culture results. Patient also noted to have significant acute kidney injury with creatinine 5.3 and BUN 52. Etiology for JAMEY most likely postrenal secondary to prostatomegaly. Monitor for improvement with Gonzales catheter and repeat renal panel in AM. JAMEY now resolved further supporting diagnosis of postrenal etiology. Patient was seen by physical therapy who recommends SNF and pending placement. Please see residents note for additional details of management. Dr. Rupesh MD
--- NOTE | 2025-01-11 17:29 | PC.PT ---
Patient is safe to ambulate to the bathroom with 1 staff and a FWW. RN made aware.
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
[2025-01-12] VITALS (10 sets, daily range): BP systolic 139–169; BP diastolic 62–85; PULSE 49–75; RESP 17–97; TEMP 36.1–37; O2SAT 95–100
[2025-01-12] MEDS: SODIUM CHLORIDE 0.9% 1000 ML 1,000 ML 75 ML IV ×2 (05:22→22:51)
[2025-01-12 08:36] LABS: Basophils # (Auto) 0.0 Thou/mm3 (0.0-0.2); Basophils % (Auto) 1 % (0-2.5); Eosinophils # (Auto) 0.5 Thou/mm3 (0.0-0.5); Eosinophils % (Auto) 6 % (0-10); Hematocrit 36.7 % (41.0-53.0); Hemoglobin 12.5 g/dL (13.5-16.0); Immature Granulocytes Auto 0.06 Thou/mm3 (0.00-0.00); Lymphocytes # (Auto) 1.9 Thou/mm3 (1.0-4.8); Lymphocytes % (Auto) 22 % (10-50); Mean Corpuscular HGB Conc 34.1 g/dl (31.0-37.0); Mean Corpuscular Hemoglobin 30.7 pg (25.0-35.0); Mean Corpuscular Volume 90 fL (80-100); Monocytes # (Auto) 0.9 Thou/mm3 (0.0-0.8); Monocytes % (Auto) 11 % (0-12); Neutrophils # (Auto) 5.1 Thou/mm3 (1.8-7.7); Neutrophils % (Auto) 61 % (37-80); Nucleated Red Blood Cell # 0.00 Thou/mm3 (0.00-0.00); Nucleated Red Blood Cell % 0 /100 WBC (0); Platelet Count 143 Thou/mm3 (140-440); RDW Standard Deviation 40.4 fL (35.1-43.9); Red Blood Count 4.07 Miln/mm3 (4.50-5.90); White Blood Count 8.4 Thou/mm3 (3.8-10.6)
--- NOTE | 2025-01-12 08:41 | ESPR_ITS ---
<Statement entered by Juliana Moody MD - 01/12/25 15:16> Note reviewed, I agree with most of its contents and agree with the patient's care as documented by Dr. Hdez. Patient examined at bedside. No events overnight. Has no major complaints. Alert and oriented x 3 with good improvement in mentaion. Patient was counseled on need for discharge with the Gonzales catheter in place. Instructed to follow-up with urology after discharge. Patient will be discharged pending SNF placement. The patient's management plan was discussed with my attending physician Dr. Goddard. Juliana Moody, PGY-2 <Statement entered by Dinah Manzo MD - 01/12/25 13:43> Patient seen and examined at bedside. No acute overnight events reported. Patient alternates between French and Trinidadian during physical examination. Patient is eager to leave the hospital soon. Mental health evaluation has been canceled due to patient's remarkable recovery clinically, and stable on IV antibiotics for his current UTI. Anticipate discharge after patient successfully placed in SNF. I discussed with and supervised the improvement intern physician who took care of this patient. I personally saw and examined the patient and discussed the assessment and plan with the entire medicine team, including my attending Dr. Goddard, I agree with most of the assessment and plan as documented below Dinah Manzo M.D. PGY-3 Disclaimer: Despite multiple revisions, due to the dictation software being used, the document bellow may not be free of grammatical errors including phonetic/typographic errors. However, this does not deter from our commitment to providing health care in the patient's best interest in mind. Documentation for date of: 01/12/25 Subjective Subjective Interval history: 01/12/25: No acute events overnight. Vital signs remain stable despite asymptomatic bradycardia at times. Patient was evaluated and examined at bedside. Patient denies any shortness of breath, chest pain, abdominal pain or urinary symptoms. Gonzales catheter in place, draining yellow urine. Patient does not have any complaints at this time. Exam Vital Signs Temp Pulse Resp BP Pulse Ox O2 Del Method 97.5 F 49 L 17 139/81 H 95 Room Air 01/12/25 04:00 01/12/25 04:37 01/12/25 04:00 01/12/25 04:00 01/12/25 04:00 01/12/25 04:00 Narrative Exam General: 89 year old appearing male in no acute distress. HEENT: Normocephalic, atraumatic, mucous membranes moist. Rhinophyma Heart: Regular rate and rhythm, no murmurs. Distant heart sounds. Lungs: Clear to auscultation with no wheezing or crackles. No use of accessory muscles. Symmetric chest rise. Abdomen: Soft, nondistended, nontender. No guarding or rebound tenderness. Neurologic: Alert and oriented x2, no gross neurological deficit, and patient able to move all 4 extremities. No tremor. Extremities: No pretibial edema. Skin: No rash or ecchymoses. Psychiatric: Appropriate mood and affect Objective Labs 01/13/25 04:54 01/13/25 04:54 Quality Measures Quality Measures none Advance care planning discussed with:: child Assessment & Plan Assessment Current Active Medications: Generic Name Dose Route Start Last Admin Trade Name Freq PRN Reason Stop Dose Admin Acetaminophen 650 mg 01/10/25 12:36 Acetaminophen 325 Mg Tablet PO 02/09/25 12:35 Q6H PRN Fever >101.5 Acetaminophen 650 mg 01/10/25 12:36 Acetaminophen 325 Mg Tablet PO 02/09/25 12:35 Q6H PRN PAIN SCALE 1-3 (mild Finasteride 5 mg 01/10/25 12:45 01/11/25 08:08 Finasteride 5 Mg Tablet PO 02/09/25 12:44 5 mg QDAY GWENDOLYN Administration Sodium Chloride 1,000 mls @ 75 mls/hr 01/10/25 12:45 01/12/25 05:22 Ns IV 02/09/25 12:44 75 mls/hr .[id number] GWENDOLYN Administration Ceftriaxone Sodium/Dextrose 1 gm in 50 mls @ 100 mls/hr 01/11/25 09:00 01/11/25 08:10 Rocephin/D5w 1gm Iv Premix IV 01/18/25 08:59 100 mls/hr QDAY GWENDOLYN Administration Ondansetron HCl 4 mg 01/10/25 12:36 Ondansetron Inj 2 Mg/Ml Inj 2 Ml IVP 02/09/25 12:35 Q6H PRN NAUSEA OR VOMITING Protocol Tamsulosin HCl 0.4 mg 01/10/25 12:45 01/11/25 08:08 Tamsulosin Hcl 0.4 Mg Capsule PO 02/09/25 12:44 0.4 mg QDAY GWENDOLYN Administration Plan 89M with PMH of worsening dementia brought in from home in [place] for evaluation of aggressive and violent behavior x2 days. Found to have urinary retention, JAMEY and UTI admitted for acute encephalopathy secondary to post renal JAMEY vs UTI management. #Acute encephalopathy secondary to post renal urinary retention vs #UTI #JAMEY (Resolved) #Dementia #Mild to moderate hydronephrosis #Prostatomegaly Most of the hx was provided by pt's daughter since he is A&Ox2. Patient has become more aggressive and violent x2 days. Patient is not on any medications for his dementia. Recently diagnosed with UTI by PCP and prescribed with Macrobid, questionable if he has taken his medication correctly. UA positive for RBCs, leukocyte esterase, nitrites, WBCs and rare bacteria. Patient was noted to have urinary retention with 1100cc dark colored urine draining from the gonzales that was placed in the ED. CTAB shows Mild to moderate hydronephrosis likely secondary to markedly distended urinary bladder. Marked prostatomegaly which may be producing the urinary bladder versus vesicoureteral reflux and urinary tract infection. Cr of 5.3 (baseline of 0.8), BUN 52, WBC 12.7, CRP 8.7. Unremarkable head CT. Patient acute mental status changes could be due to acute encephalopathy in the setting of worsening dementia secondary to urinary retention 2/2 post renal prostatomegaly vs UTI. Patient JAMEY most likely due to post renal prostatomegaly vs dehydration. Patient's Cr improved to 0.8 and leukocytosis resolved to 8.4. Blood culture and urine culture negative, however it is notable that his urine sample was collected after initiation of antibiotics in the ED. Plan: - Continue with gonzales catheter - Strict I&Os - Renal diet - IVF NS maintenance at 75 - Continue Rocephin 1g qday (01/10/25-) - Continue Flomax 0.4 qday - Continue Finesteride 5 qday (01/10/25) - Pending SNF placement - CTM renal panel - Patient will need to follow up with an Urologist outpatient in regards to their prostatomegaly #Subclinical Hyperthyroidism TSH:0.46. Patient is asymptomatic. Plan: - Follow up outpatient Hospital management: Lines: peripheral IV, gonzales catheter Diet: Renal diet DVT prophylaxis: SCDs Disposition: acute encephalopathy in the setting of worsening dementia secondary to urinary retention 2/2 post renal prostatomegaly vs UTI management CODE STATUS: DNR Plan discussed with senior residents Drs. Manzo and Fransisco and attending physician Dr. Goddard. Reyna Hdez, DO PGY-1 Attending Provider Attestation/Addendum I have examined the patient, reviewed labs and imaging findings, discussed the case with the resident(s), and reviewed entered orders. I agree with the plan of care as outlined in this note, with these additional summaries/recommendations: Patient is a 89-year-old male with a medical history of dementia who presents to [facility] emergency department on 02/06/2025 with chief complaint of altered mental status. Patient seen at bedside. No acute overnight events. Patient's acute encephalopathy has resolved. Patient does have underlying dementia at baseline. Per daughter he takes no medications. Continue frequent reorientation to prevent delirium. Acute encephalopathy secondary to acute urinary retention. CT abdomen and pelvis did reveal a significantly distended bladder, bilateral hydronephrosis, and prostatomegaly 6.3 cm. Acute urinary retention most likely secondary to prostatomegaly. Continue Flomax and finasteride. Continue Gonzales catheter. Outpatient follow-up with urology. Urinalysis indicative of urinary tract infection. Continue IV antibiotic. Urine cx showed no growth although patient was taking outpatient antibiotics prior to collection and likely unreliable result. Patient also noted to have significant acute kidney injury with creatinine 5.3 and BUN 52 on admission. Etiology for JAMEY most likely postrenal secondary to prostatomegaly. JAMEY now resolved further supporting diagnosis of postrenal etiology. Patient was seen by physical therapy who recommends SNF and pending placement. Please see residents note for additional details of management. Patient had code pierson yesterday evening. 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 Patient was not easily redirectable and combative. Patient was also pulling out his IVs and Gonzales catheter. Patient was placed on bilateral soft wrist restraints although was able to get out of these on multiple occasions. I spoke with patient's daughter who is patient's medical decision maker. Risks and benefits of giving patient medicines in the setting were discussed at length. Patient's daughter opted out of antipsychotic blackbox warning for increased mortality and dementia related psychosis. Patient was refusing all oral medicines which limited our options. After discussing the risks and benefits of giving benzodiazepine, patient's daughter decided to pursue Valium. She reports he has received benzodiazepines on multiple other occasions that worked well. Risks of benzodiazepine were explained including respiratory depression and need for intubation. Dr. Rupesh MD
[2025-01-12 08:55] LABS: Alanine Aminotransferase 25 U/L (10-49); Albumin, Serum 3.2 gm/dL (3.4-4.8); Albumin/Globulin Ratio 1.5 (1.2-2.2); Alkaline Phosphatase 65 U/L (46-116); Anion Gap 10 (7-16); Aspartate Amino Transferase 10 U/L (0-34); BUN/Creatinine Ratio 11 Ratio (12-20); Bilirubin,Total 0.7 mg/dL (0.3-1.2); Blood Urea Nitrogen 9 mg/dL (9-23); Calcium 8.6 mg/dL (8.3-10.6); Calcium (Corrected) 9.2 mg/dL (8.5-10.1); Carbon Dioxide 29.5 mMol/L (20.0-31.0); Chloride 107 mMol/L (98-107); Creatinine (Component) 0.8 mg/dL (0.6-1.3); Estimated Creatinine Clearance 60.4 mL/min (>60); Globulin 2.2 gm/dL (2.3-3.5); Glucose 95 mg/dL (74-106); Magnesium 1.9 mg/dL (1.6-2.6); Osmolality,Calculated 289 (275-295); Phosphorous 1.8 mg/dL (2.4-5.1); Potassium 4.1 mMol/L (3.4-5.1); Sodium 146 mMol/L (136-145); Total Protein 5.4 gm/dL (5.7-8.2); eGFR > 60 See Note
[2025-01-12] MEDS: ACETAMINOPHEN 325 MG TABLET 650 MG PO (09:02)
[2025-01-12] MEDS: TAMSULOSIN HCL 0.4 MG CAPSULE PO (09:02)
[2025-01-12] MEDS: FINASTERIDE 5 MG TABLET PO (09:03)
[2025-01-12] MEDS: cefTRIAXone/D5w 1gm IV premix 1 GM/50 ML BAG IV (09:03)
--- NOTE | 2025-01-12 09:41 | PC.SS ---
[facility] referral submitted, pending responses.
--- NOTE | 2025-01-12 09:56 | PC.SS ---
PASRR LVL 1 completed and downloaded no need for LVL 2
--- NOTE | 2025-01-12 11:22 | PC.SS ---
Addendum entered by Myrtle Avery 01/12/25 14:51: SS spoke to Maricruz at [facility] who did an onsite and accepted pt. Maricruz inquired on DC plan for after SNF. SS contacted pt dtr Cherelle to inquire on veterinary assistant technician plan after SNF. Per Cherelle pt is seeking veterinary assistant technician placement. Open to assisted living being pt does have an income between SSI/SSDI $2000, SS reached out to Maricruz who stated she is unsure if pt will qualify for veterinary assistant technician as he is high functioning . SS inquired if [facility] can help assist with assisted living for the pt upon DC from SNF, per Maricruz yes they would be able to help assist him. SS requested for Maricruz to speak to pt dtr Cherelle directly Addendum entered by Myrtle Avery 01/12/25 14:19: SS spoke to Cherelle who stated, [facility] is their next choice. SS updated Maricruz at [facility]. Original Note: SS attempted to reach pt dtr Cherelle Hernandez [phone] in regards to SNF options. No answer. VM left with call back information. Accepting Facities: [facility] Declined Facilities: [facility]
[2025-01-12] MEDS: DIAZEPAM INJ 5 MG/ML VIAL 2 ML IVP ×2 (17:44→18:30)
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
--- NOTE | 2025-01-12 21:54 | PC.NURSE ---
Dr. Stewart at bedside assessing patient, pt is restless was moving around a lot and noticed pt bleeding from penis and blood in the gonzales catheter, irrigated gonzales catheter and 600mls of bloody urine drained, MD will wait to give meds for agitation at the moment. If pt becomes more restless and agitated will order meds.
[2025-01-13] VITALS (10 sets, daily range): BP systolic 125–181; BP diastolic 58–91; PULSE 48–75; RESP 15–98; TEMP 36.2–36.7; O2SAT 94–98; BMI 22.8
[2025-01-13 05:38] LABS: Basophils # (Auto) 0.0 Thou/mm3 (0.0-0.2); Basophils % (Auto) 0 % (0-2.5); Eosinophils # (Auto) 0.4 Thou/mm3 (0.0-0.5); Eosinophils % (Auto) 4 % (0-10); Hematocrit 35.2 % (41.0-53.0); Hemoglobin 12.2 g/dL (13.5-16.0); Immature Granulocytes Auto 0.07 Thou/mm3 (0.00-0.00); Lymphocytes # (Auto) 1.7 Thou/mm3 (1.0-4.8); Lymphocytes % (Auto) 18 % (10-50); Mean Corpuscular HGB Conc 34.7 g/dl (31.0-37.0); Mean Corpuscular Hemoglobin 31.0 pg (25.0-35.0); Mean Corpuscular Volume 90 fL (80-100); Monocytes # (Auto) 1.0 Thou/mm3 (0.0-0.8); Monocytes % (Auto) 10 % (0-12); Neutrophils # (Auto) 6.7 Thou/mm3 (1.8-7.7); Neutrophils % (Auto) 68 % (37-80); Nucleated Red Blood Cell # 0.00 Thou/mm3 (0.00-0.00); Nucleated Red Blood Cell % 0 /100 WBC (0); Platelet Count 147 Thou/mm3 (140-440); RDW Standard Deviation 39.8 fL (35.1-43.9); Red Blood Count 3.93 Miln/mm3 (4.50-5.90); White Blood Count 9.8 Thou/mm3 (3.8-10.6)
[2025-01-13 06:04] LABS: Alanine Aminotransferase 25 U/L (10-49); Albumin, Serum 3.5 gm/dL (3.4-4.8); Albumin/Globulin Ratio 1.7 (1.2-2.2); Alkaline Phosphatase 66 U/L (46-116); Anion Gap 12 (7-16); Aspartate Amino Transferase 20 U/L (0-34); BUN/Creatinine Ratio 9 Ratio (12-20); Bilirubin,Total 0.8 mg/dL (0.3-1.2); Blood Urea Nitrogen 6 mg/dL (9-23); Calcium 9.0 mg/dL (8.3-10.6); Calcium (Corrected) 9.4 mg/dL (8.5-10.1); Carbon Dioxide 28.0 mMol/L (20.0-31.0); Chloride 103 mMol/L (98-107); Creatinine (Component) 0.7 mg/dL (0.6-1.3); Estimated Creatinine Clearance 69.0 mL/min (>60); Globulin 2.1 gm/dL (2.3-3.5); Glucose 88 mg/dL (74-106); Magnesium 1.6 mg/dL (1.6-2.6); Osmolality,Calculated 281 (275-295); Phosphorous 1.9 mg/dL (2.4-5.1); Potassium 3.2 mMol/L (3.4-5.1); Sodium 143 mMol/L (136-145); Total Protein 5.6 gm/dL (5.7-8.2); eGFR > 60 See Note
[2025-01-13] MEDS: cefTRIAXone/D5w 1gm IV premix 1 GM/50 ML BAG IV (08:53)
[2025-01-13] MEDS: FINASTERIDE 5 MG TABLET PO (08:53)
[2025-01-13] MEDS: TAMSULOSIN HCL 0.4 MG CAPSULE PO (08:53)
[2025-01-13] MEDS: SODIUM CHLORIDE 0.9% 1000 ML 1,000 ML 75 ML IV (12:10)
--- NOTE | 2025-01-13 14:54 | PC.SS ---
SS expanded search for Lock[facility] facility for pt due to aggressive behavior.
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
[2025-01-14] VITALS (7 sets, daily range): BP systolic 119–153; BP diastolic 52–85; PULSE 55–74; RESP 17–20; TEMP 36.1–37.1; O2SAT 96–100
[2025-01-14] MEDS: SODIUM CHLORIDE 0.9% 1000 ML 1,000 ML 75 ML IV (01:36)
[2025-01-14 06:16] LABS: Basophils # (Auto) 0.0 Thou/mm3 (0.0-0.2); Basophils % (Auto) 0 % (0-2.5); Eosinophils # (Auto) 0.5 Thou/mm3 (0.0-0.5); Eosinophils % (Auto) 5 % (0-10); Hematocrit 37.0 % (41.0-53.0); Hemoglobin 12.6 g/dL (13.5-16.0); Immature Granulocytes Auto 0.06 Thou/mm3 (0.00-0.00); Lymphocytes # (Auto) 2.2 Thou/mm3 (1.0-4.8); Lymphocytes % (Auto) 25 % (10-50); Mean Corpuscular HGB Conc 34.1 g/dl (31.0-37.0); Mean Corpuscular Hemoglobin 30.7 pg (25.0-35.0); Mean Corpuscular Volume 90 fL (80-100); Monocytes # (Auto) 0.9 Thou/mm3 (0.0-0.8); Monocytes % (Auto) 10 % (0-12); Neutrophils # (Auto) 5.5 Thou/mm3 (1.8-7.7); Neutrophils % (Auto) 60 % (37-80); Nucleated Red Blood Cell # 0.00 Thou/mm3 (0.00-0.00); Nucleated Red Blood Cell % 0 /100 WBC (0); Platelet Count 186 Thou/mm3 (140-440); RDW Standard Deviation 40.2 fL (35.1-43.9); Red Blood Count 4.10 Miln/mm3 (4.50-5.90); White Blood Count 9.2 Thou/mm3 (3.8-10.6)
[2025-01-14 07:56] LABS: Alanine Aminotransferase < 7 U/L (10-49); Albumin, Serum 3.3 gm/dL (3.4-4.8); Albumin/Globulin Ratio 1.4 (1.2-2.2); Alkaline Phosphatase 61 U/L (46-116); Anion Gap 10 (7-16); Aspartate Amino Transferase 19 U/L (0-34); BUN/Creatinine Ratio 9 Ratio (12-20); Bilirubin,Total 0.6 mg/dL (0.3-1.2); Blood Urea Nitrogen 6 mg/dL (9-23); Calcium 9.0 mg/dL (8.3-10.6); Calcium (Corrected) 9.6 mg/dL (8.5-10.1); Carbon Dioxide 27.0 mMol/L (20.0-31.0); Chloride 106 mMol/L (98-107); Creatinine (Component) 0.7 mg/dL (0.6-1.3); Estimated Creatinine Clearance 69.0 mL/min (>60); Globulin 2.3 gm/dL (2.3-3.5); Glucose 83 mg/dL (74-106); Magnesium 1.7 mg/dL (1.6-2.6); Osmolality,Calculated 281 (275-295); Potassium 3.5 mMol/L (3.4-5.1); Sodium 143 mMol/L (136-145); Total Protein 5.6 gm/dL (5.7-8.2); eGFR > 60 See Note
[2025-01-14] MEDS: TAMSULOSIN HCL 0.4 MG CAPSULE PO (08:10)
[2025-01-14] MEDS: cefTRIAXone/D5w 1gm IV premix 1 GM/50 ML BAG IV (08:10)
[2025-01-14] MEDS: FINASTERIDE 5 MG TABLET PO (08:10)
[2025-01-14 09:02] LABS: Phosphorous 2.3 mg/dL (2.4-5.1)
--- NOTE | 2025-01-14 10:45 | ESPR_ITS ---
Documentation for date of: 01/14/25 Subjective Subjective Interval history: No acute overnight events reported. Pt seen and examined at bedside. Per one-to-one sitter patient has not caused any disturbance and was found sound asleep all night. Patient has been off restraints last 12 hours. 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 Patient was able to eat his breakfast today and pt denies any other acute complaints at this time. Patient's labs were significant for last improvement in his creatinine function from 5.3 on admission to today at 0.7. Patient also presented with slightly decreased magnesium and potassium, and will replete accordingly. Patient will finish his IV antibiotic course of Rocephin tomorrow to complete a 5-day course of his UTI infection. Exam Vital Signs Temp Pulse Resp BP Pulse Ox O2 Del Method 97 F 73 18 119/85 H 100 Room Air 01/14/25 08:00 01/14/25 08:00 01/14/25 08:00 01/14/25 08:00 01/14/25 08:00 01/14/25 08:00 Narrative Exam General: 89 year old appearing male in no acute distress. Conversational, pleasant and able to answer most questions HEENT: Normocephalic, atraumatic, mucous membranes moist. Rhinophyma Heart: Regular rate and rhythm, no murmurs. Distant heart sounds. Lungs: Clear to auscultation with no wheezing or crackles. No use of accessory muscles. Symmetric chest rise. : Gonzales in place Abdomen: Soft, nondistended, nontender. No guarding or rebound tenderness. Neurologic: Alert and oriented x2 to name and place, no gross neurological deficit, and patient able to move all 4 extremities. No tremor. Extremities: No pretibial edema. Skin: No rash or ecchymoses. Psychiatric: Appropriate mood and affect Objective Labs 01/14/25 05:00 01/14/25 05:41 Labs: Laboratory Results - last 24 hr 01/14/25 01/14/25 05:00 05:41 WBC 9.2 RBC 4.10 L Hgb 12.6 L Hct 37.0 L MCV 90 MCH 30.7 MCHC 34.1 RDW Std Deviation 40.2 Plt Count 186 D Neut % (Auto) 60 Lymph % (Auto) 25 [place] % (Auto) 10 Eos % (Auto) 5 Baso % (Auto) 0 Neut # (Auto) 5.5 Lymph # (Auto) 2.2 [place] # (Auto) 0.9 H Eos # (Auto) 0.5 Baso # (Auto) 0.0 Immature Gran # (Auto) 0.06 H Absolute Nucleated RBC 0.00 Immature Gran % 1 H Nucleated RBC % 0 Sodium 143 Potassium 3.5 Chloride 106 Carbon Dioxide 27.0 Anion Gap 10 BUN 6 L Creatinine 0.7 Estim Creat Clear Calc 69.0 eGFR > 60 BUN/Creatinine Ratio 9 L Glucose 83 Calculated Osmolality 281 Calcium 9.0 Corrected Calcium 9.6 Phosphorus 2.3 L Magnesium 1.7 Total Bilirubin 0.6 AST 19 ALT < 7 L Alkaline Phosphatase 61 Total Protein 5.6 L Albumin 3.3 L Globulin 2.3 Albumin/Globulin Ratio 1.4 Quality Measures Quality Measures none Advance care planning discussed with:: patient Assessment & Plan Assessment Current Active Medications: Generic Name Dose Route Start Last Admin Trade Name Freq PRN Reason Stop Dose Admin Acetaminophen 650 mg 01/10/25 12:36 01/12/25 09:02 Acetaminophen 325 Mg Tablet PO 02/09/25 12:35 650 mg Q6H PRN Administration Fever >101.5 Acetaminophen 650 mg 01/10/25 12:36 Acetaminophen 325 Mg Tablet PO 02/09/25 12:35 Q6H PRN PAIN SCALE 1-3 (mild Finasteride 5 mg 01/10/25 12:45 01/14/25 08:10 Finasteride 5 Mg Tablet PO 02/09/25 12:44 5 mg QDAY GWENDOLYN Administration Ceftriaxone Sodium/Dextrose 1 gm in 50 mls @ 100 mls/hr 01/11/25 09:00 01/14/25 08:10 Rocephin/D5w 1gm Iv Premix IV 01/18/25 08:59 100 mls/hr QDAY GWENDOLYN Administration Magnesium Sulfate 4 gm in 50 mls @ 12.5 mls/hr 01/14/25 08:43 Magnesium Sulfate Ivpb IV 01/14/25 12:42 X1 ONE Ondansetron HCl 4 mg 01/10/25 12:36 Ondansetron Inj 2 Mg/Ml Inj 2 Ml IVP 02/09/25 12:35 Q6H PRN NAUSEA OR VOMITING Protocol Tamsulosin HCl 0.4 mg 01/10/25 12:45 01/14/25 08:10 Tamsulosin Hcl 0.4 Mg Capsule PO 02/09/25 12:44 0.4 mg QDAY GWENDOLYN Administration Plan 89M with PMH of worsening dementia brought in from home in [place] for evaluation of aggressive and violent behavior x2 days. Found to have urinary retention, JAMEY and UTI admitted for acute encephalopathy secondary to post renal JAMEY vs UTI management. #Dementia with psychotic like features #Delirium Spoke with family about patient's underlying dementia with need of more care. Family has agreed for placing patient into a custodial facility. Underlying causes for AMS listed below. No active infection. Patient given Ativan and diazepam more than 24 hours ago -Avoid sedating medications -Redirect as necessary -Wrist restraints if needed -Patient is awaiting placement at a special facility to help with patient's above behavioral problems related to his chronic dementia #Acute encephalopathy secondary to post renal urinary retention (resolved) vs #UTI #JAMEY (Resolved) #Mild to moderate hydronephrosis #Prostatomegaly Most of the hx was provided by pt's daughter since he is A&Ox2. Patient has become more aggressive and violent x2 days. Patient is not on any medications for his dementia. Recently diagnosed with UTI by PCP and prescribed with Macrobid, questionable if he has taken his medication correctly. UA positive for RBCs, leukocyte esterase, nitrites, WBCs and rare bacteria. Patient was noted to have urinary retention with 1100cc dark colored urine draining from the gonzales that was placed in the ED. CTAB shows Mild to moderate hydronephrosis likely secondary to markedly distended urinary bladder. Marked prostatomegaly which may be producing the urinary bladder versus vesicoureteral reflux and urinary tract infection. Cr of 5.3 (baseline of 0.8), BUN 52, WBC 12.7, CRP 8.7. Unremarkable head CT. Patient acute mental status changes could be due to acute encephalopathy in the setting of worsening dementia secondary to urinary retention 2/2 post renal prostatomegaly vs UTI. Patient JAMEY most likely due to post renal prostatomegaly vs dehydration. Patient's Cr improved to 0.8 and leukocytosis resolved to 8.4. Blood culture and urine culture negative, however it is notable that his urine sample was collected after initiation of antibiotics in the ED. - Continue with gonzales catheter - Strict I&Os - Renal diet - IVF NS maintenance - Continue Rocephin 1g qday (01/10/25-) - Continue Flomax 0.4 qday - Continue Finesteride 5 qday (01/10/25) - Pending SNF placement - CTM renal panel - Patient will need to follow up with an Urologist outpatient in regards to their prostatomegaly #Subclinical Hyperthyroidism TSH:0.46. Patient is asymptomatic. - Follow up outpatient Health Maintenance: Lines: peripheral IV, gonzales catheter Diet: Renal diet DVT prophylaxis: SCDs Disposition: Pending placement to special facility for his dementia related to psychotic features CODE STATUS: DNR Patient's plan and care discussed with my attending, Dr. Rupesh Manzo MD PGY-3 Attending Provider Attestation/Addendum I have examined the patient, reviewed labs and imaging findings, discussed the case with the resident(s), and reviewed entered orders. I agree with the plan of care as outlined in this note, with these additional summaries/recommendations: Patient is a 89-year-old male with a medical history of dementia who presents to [facility] emergency department on 02/06/2025 with chief complaint of altered mental status. Patient seen at bedside. No acute overnight events. Pending placement. Today at bedside patient's mentation is much improved. Patient is calm and following directions. Patient does have underlying severe dementia at baseline. 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 I notified case management the patient will need to be discharged to a nursing facility that specializes in dementia as he is high risk for readmission when he develops dementia related psychosis. Continue frequent reorientation to prevent worsening delirium. On admission CT abdomen and pelvis did reveal a significantly distended bladder, bilateral hydronephrosis, and prostatomegaly 6.3 cm. Acute urinary retention secondary to prostatomegaly. Continue Flomax and finasteride. Continue Gonzales catheter. Outpatient follow-up with urology. Urinalysis indicative of urinary tract infection. Continue IV antibiotic. Urine cx showed no growth although patient was taking outpatient antibiotics prior to collection and likely unreliable result. Patient also noted to have significant acute kidney injury with creatinine 5.3 and BUN 52 on admission which has now resolved. Etiology for JAMEY most likely postrenal secondary to prostatomegaly. JAMEY now resolved further supporting diagnosis of postrenal etiology. Patient was seen by physical therapy who recommends SNF and pending placement. Case management notified to look into facilities that specialize in managing dementia patients. Please see residents note for additional details of management. Dr. Rupesh MD
[2025-01-14] MEDS: Magnesium Sulfate 4 GM Ivpb 4 GM/50 ML BAG IV (10:47)
--- NOTE | 2025-01-14 15:14 | PC.NURSE ---
pt has not been on restraints today, from the beginning of my shift at 6:45, pt has not been combative, he has been pleasant and cooperative
--- NOTE | 2025-01-14 15:26 | PC.SS ---
Rounding note: no mental health evaluation needed, pending accepting facility. MANAGER MOTOR atetmpted to contact facilities but admissions not available on Wednesday.
[2025-01-15] VITALS: BP 126/63; PULSE 56; PULSE 58; RESP 18; TEMP 36.5; O2SAT 94
[2025-01-15] MEDS: MELATONIN 3 MG TABLET 6 MG PO (01:07)
--- NOTE | 2025-01-15 03:43 | PC.NURSE ---
PATIENT GETS AGITATED,KEEPS ON REMOVING ULTRASOUND TECH.EXPLAINED TO HIM TO PUT BACK THE ULTRASOUND TECH BUT REFUSED AND GETS AGGRESSIVE.CODE [place] ACTIVATED.DR. SCHREIBER AND DR. KING CAME AND SEE THE PATIENT.PROMISED TO PUT NEW ORDER TO DOWNGRADE PATIENT TO [facility].
[2025-01-15 07:46] VITALS: BP 173/77; PULSE 66; RESP 18; TEMP 36.3; O2SAT 94
[2025-01-15] MEDS: cefTRIAXone/D5w 1gm IV premix 1 GM/50 ML BAG IV (08:16)
[2025-01-15] MEDS: TAMSULOSIN HCL 0.4 MG CAPSULE PO (08:16)
[2025-01-15] MEDS: FINASTERIDE 5 MG TABLET PO (08:17)
[2025-01-15 08:20] VITALS: BP 76/43; PULSE 62; O2SAT 97
--- NOTE | 2025-01-15 09:24 | PC.SS ---
Addendum entered by Mely Hay 01/15/25 16:30: SS follow up note; SS was contacted by Yanira from [facility], she informed SS that they would like updated PT notes and Speech therapy notes. SS informed Dr. Moody that Insurance is requesting Speech therapy evaluation. SS contacted Sesar from PT and he informed SS he will re evalate patient tomorrow morning. SS will stand by for further. Addendum entered by Mely Hay 01/15/25 15:22: SS follow up note; SS made multiple unsuccessful attempts to contact Clary at [facility], SS was unable to leave . Upon finally reaching [facility], SS was informed that patient they are not able to authorize patient to a SNF due to patient's mobility (walking 300 [address]). SS notified Dr. Goddard of the situation. Dr. Goddard requested a one on one peer review with [facility]'s provider due to patient not being able to perform ADL's. SS contacted Clary,relaying Dr. Goddard's request for a peer review with her director. Clary agreed, and SS provided Vy Goddard's contact information. Calry Stated her director would contact Dr. Goddard. SS contacted the patient's daughter, Melissa. Melissa stated she is unable and unwilling to care for the patient at home, expressing her dissatisfaction with the insurance decision. SS informed Melissa they would research and provide rivas comparisons for memory care facilities. Melissa expressed a limited ability to pay with the patient's income being $1200 per month from Social Security. SS will contact memory care facilities rivas options. SS will stand by for further needs. Addendum entered by Mely Hay 01/15/25 13:15: SS follow up note; SS attempted to contact Clary from [facility]. VM full and unable to leave . Most facilities are declining, however [facility] in [place] accepted patient, however they are not contacted as well. SS will attempt to contact Clary at a later time. SS will stand by for further needs. Addendum entered by Mely Hay 01/15/25 11:39: SS follow up note: SS was contacted by Clary from [facility] in regards to SNF placement. Clary informed SS that [place] facilities need to decline before [facility] gets authorization. SS will submit to all SNFs in [place]. SS will stand by for further needs. Original Note: SS expanded the search to a lock down facility. SS contacted Maricruz from [facility] and she informed SS they are able to accept patient and will submit for auth. SS contacted patient's daughter, Melissa and she informed SS that she is agreeable to have patient discharge to [facility]. Maricruz will start authorization. SS will stand by for further needs.
[2025-01-15 10:59] LABS: Basophils # (Auto) 0.0 Thou/mm3 (0.0-0.2); Basophils % (Auto) 0 % (0-2.5); Eosinophils # (Auto) 0.3 Thou/mm3 (0.0-0.5); Eosinophils % (Auto) 4 % (0-10); Hematocrit 39.0 % (41.0-53.0); Hemoglobin 13.6 g/dL (13.5-16.0); Immature Granulocytes Auto 0.05 Thou/mm3 (0.00-0.00); Lymphocytes # (Auto) 1.5 Thou/mm3 (1.0-4.8); Lymphocytes % (Auto) 18 % (10-50); Mean Corpuscular HGB Conc 34.9 g/dl (31.0-37.0); Mean Corpuscular Hemoglobin 31.0 pg (25.0-35.0); Mean Corpuscular Volume 89 fL (80-100); Monocytes # (Auto) 0.7 Thou/mm3 (0.0-0.8); Monocytes % (Auto) 8 % (0-12); Neutrophils # (Auto) 5.7 Thou/mm3 (1.8-7.7); Neutrophils % (Auto) 69 % (37-80); Nucleated Red Blood Cell # 0.00 Thou/mm3 (0.00-0.00); Nucleated Red Blood Cell % 0 /100 WBC (0); Platelet Count 182 Thou/mm3 (140-440); RDW Standard Deviation 40.3 fL (35.1-43.9); Red Blood Count 4.39 Miln/mm3 (4.50-5.90); White Blood Count 8.2 Thou/mm3 (3.8-10.6)
[2025-01-15 11:29] LABS: Alanine Aminotransferase 27 U/L (10-49); Albumin, Serum 3.7 gm/dL (3.4-4.8); Albumin/Globulin Ratio 1.5 (1.2-2.2); Alkaline Phosphatase 71 U/L (46-116); Anion Gap 9 (7-16); Aspartate Amino Transferase 28 U/L (0-34); BUN/Creatinine Ratio 13 Ratio (12-20); Bilirubin,Total 0.3 mg/dL (0.3-1.2); Blood Urea Nitrogen 10 mg/dL (9-23); Calcium 9.3 mg/dL (8.3-10.6); Calcium (Corrected) 9.5 mg/dL (8.5-10.1); Carbon Dioxide 28.6 mMol/L (20.0-31.0); Chloride 104 mMol/L (98-107); Creatinine (Component) 0.8 mg/dL (0.6-1.3); Estimated Creatinine Clearance 60.4 mL/min (>60); Globulin 2.4 gm/dL (2.3-3.5); Glucose 127 mg/dL (74-106); Magnesium 2.1 mg/dL (1.6-2.6); Osmolality,Calculated 284 (275-295); Potassium 4.2 mMol/L (3.4-5.1); Sodium 142 mMol/L (136-145); Total Protein 6.1 gm/dL (5.7-8.2); eGFR > 60 See Note
--- NOTE | 2025-01-15 11:56 | PC.URM ---
I spoke with Jaleesa at [facility] who explained that patient is currently out of network. his primary residence is listed as [place] so they are responsible for the SNF portion of his care. Clary requests Clinicals for his stay in order to authorize SNF. We also have to show that we exhausted appropriate placement search in [place] before she can authorize placement elsewhere. I asked for a list and the only one she knows of at present is [facility] transitional care. Clary will call with other contacts if available.
[2025-01-15 12:00] VITALS: BP 149/65; BP 173/77; PULSE 64; PULSE 69; RESP 17; TEMP 36.1; O2SAT 96
[2025-01-15] MEDS: NAPH,KPH MBDB 1 PACKET (1.5 GM) PO (12:00)
[2025-01-15 16:00] VITALS: BP 130/67; PULSE 72; RESP 18; TEMP 36.2; O2SAT 97
--- NOTE | 2025-01-15 18:02 | PD.RESPRO ---
Documentation for date of: 01/15/25 Subjective Subjective Interval history: Patient examined at bedside. No events overnight. He is awake sitting on the edge of his bed, calm demeanor, answering questions but is very confused. Is not able to recall where he is but is oriented to self. Vitals significant for high blood pressure??start amlodipine 5 mg daily. environmental services specialist team attempting for placement at SNF facility [facility] stated that they will evaluate patient's case and would need additional PT eval and speech evaluation before acceptance. Today he completed 5-day course of antibiotics for treatment of UTI. Continue monitoring, discharge pending final evaluation. Exam Vital Signs Temp Pulse Resp BP Pulse Ox O2 Del Method O2 Flow Rate 97.2 F 72 18 130/67 97 Room Air 4 01/15/25 16:00 01/15/25 16:00 01/15/25 16:00 01/15/25 16:00 01/15/25 16:00 01/15/25 16:00 01/15/25 08:20 Narrative Exam General: 89 year old appearing male in no acute distress. Conversational, pleasant and able to answer most questions HEENT: Normocephalic, atraumatic, mucous membranes moist. Rhinophyma Heart: Regular rate and rhythm, no murmurs. Distant heart sounds. Lungs: Clear to auscultation with no wheezing or crackles. No use of accessory muscles. Symmetric chest rise. : Gonzales in place Abdomen: Soft, nondistended, nontender. No guarding or rebound tenderness. Neurologic: Alert and oriented x1 to name, no gross neurological deficit, and patient able to move all 4 extremities. No tremor. Extremities: No pretibial edema. Skin: No rash or ecchymoses. Psychiatric: Appropriate mood and affect Objective Labs 01/15/25 10:35 01/15/25 10:35 Labs: Laboratory Results - last 24 hr 01/15/25 10:35 WBC 8.2 RBC 4.39 L Hgb 13.6 Hct 39.0 L MCV 89 MCH 31.0 MCHC 34.9 RDW Std Deviation 40.3 Plt Count 182 Neut % (Auto) 69 Lymph % (Auto) 18 [place] % (Auto) 8 Eos % (Auto) 4 Baso % (Auto) 0 Neut # (Auto) 5.7 Lymph # (Auto) 1.5 [place] # (Auto) 0.7 Eos # (Auto) 0.3 Baso # (Auto) 0.0 Immature Gran # (Auto) 0.05 H Absolute Nucleated RBC 0.00 Immature Gran % 1 H Nucleated RBC % 0 Sodium 142 Potassium 4.2 D Chloride 104 Carbon Dioxide 28.6 Anion Gap 9 BUN 10 Creatinine 0.8 Estim Creat Clear Calc 60.4 L eGFR > 60 BUN/Creatinine Ratio 13 Glucose 127 H D Calculated Osmolality 284 Calcium 9.3 Corrected Calcium 9.5 Magnesium 2.1 Total Bilirubin 0.3 AST 28 ALT 27 Alkaline Phosphatase 71 Total Protein 6.1 Albumin 3.7 Globulin 2.4 Albumin/Globulin Ratio 1.5 Quality Measures Quality Measures none Advance care planning discussed with:: child Assessment & Plan Assessment Current Active Medications: Generic Name Dose Route Start Last Admin Trade Name Freq PRN Reason Stop Dose Admin Acetaminophen 650 mg 01/10/25 12:36 01/12/25 09:02 Acetaminophen 325 Mg Tablet PO 02/09/25 12:35 650 mg Q6H PRN Administration Fever >101.5 Acetaminophen 650 mg 01/10/25 12:36 Acetaminophen 325 Mg Tablet PO 02/09/25 12:35 Q6H PRN PAIN SCALE 1-3 (mild Amlodipine Besylate 5 mg 01/15/25 11:00 01/15/25 12:00 Amlodipine Besylate 5 Mg Tablet PO 02/14/25 10:59 5 mg QDAY GWENDOLYN Administration Finasteride 5 mg 01/10/25 12:45 01/15/25 08:17 Finasteride 5 Mg Tablet PO 02/09/25 12:44 5 mg QDAY GWENDOLYN Administration Ceftriaxone Sodium/Dextrose 1 gm in 50 mls @ 100 mls/hr 01/11/25 09:00 01/15/25 12:04 Rocephin/D5w 1gm Iv Premix IV 01/18/25 08:59 Infused QDAY GWENDOLYN Infusion Ondansetron HCl 4 mg 01/10/25 12:36 Ondansetron Inj 2 Mg/Ml Inj 2 Ml IVP 02/09/25 12:35 Q6H PRN NAUSEA OR VOMITING Protocol Tamsulosin HCl 0.4 mg 01/10/25 12:45 01/15/25 08:16 Tamsulosin Hcl 0.4 Mg Capsule PO 02/09/25 12:44 0.4 mg QDAY GWENDOLYN Administration Plan 89M with PMH of worsening dementia brought in from home in [place] for evaluation of aggressive and violent behavior x2 days. Found to have urinary retention, JAMEY and UTI admitted for acute encephalopathy secondary to post renal JAMEY vs UTI management. #Dementia with psychotic like features #Delirium Spoke with family about patient's underlying dementia with need of more care. Family has agreed for placing patient into a group home facility. Underlying causes for AMS listed below. No active infection. Patient given Ativan and diazepam more than 24 hours ago -Avoid sedating medications -Redirect as necessary -Wrist restraints if needed -Patient is awaiting placement at a special facility to help with patient's above behavioral problems related to his chronic dementia #Acute encephalopathy secondary to post renal urinary retention (resolved) vs #UTI #JAMEY (Resolved) #Mild to moderate hydronephrosis #Prostatomegaly Most of the hx was provided by pt's daughter since he is A&Ox2. Patient has become more aggressive and violent x2 days. Patient is not on any medications for his dementia. Recently diagnosed with UTI by PCP and prescribed with Janaebid, questionable if he has taken his medication correctly. UA positive for RBCs, leukocyte esterase, nitrites, WBCs and rare bacteria. Patient was noted to have urinary retention with 1100cc dark colored urine draining from the gonzales that was placed in the ED. CTAB shows Mild to moderate hydronephrosis likely secondary to markedly distended urinary bladder. Marked prostatomegaly which may be producing the urinary bladder versus vesicoureteral reflux and urinary tract infection. Cr of 5.3 (baseline of 0.8), BUN 52, WBC 12.7, CRP 8.7. Unremarkable head CT. Patient acute mental status changes could be due to acute encephalopathy in the setting of worsening dementia secondary to urinary retention 2/2 post renal prostatomegaly vs UTI. Patient JAMEY most likely due to post renal prostatomegaly vs dehydration. Patient's Cr improved to 0.8 and leukocytosis resolved to 8.4. Blood culture and urine culture negative, however it is notable that his urine sample was collected after initiation of antibiotics in the ED. - Continue with gonzales catheter - Strict I&Os - Renal diet - IVF NS maintenance - Continue Rocephin 1g qday (01/10/25-01/15) - Continue Flomax 0.4 qday - Continue Finesteride 5 qday (01/10/25) - Pending SNF placement -pending speech eval - CTM renal panel - Patient will need to follow up with an Urologist outpatient in regards to their prostatomegaly #Subclinical Hyperthyroidism TSH:0.46. Patient is asymptomatic. - Follow up outpatient Health Maintenance: Lines: peripheral IV, gonzales catheter Diet: Renal diet DVT prophylaxis: SCDs Disposition: Pending placement to special facility for his dementia related to psychotic features CODE STATUS: DNR Patient's plan and care discussed with my attending, Dr. Rupesh Moody, PGY2 Attending Provider Attestation/Addendum I have examined the patient, reviewed labs and imaging findings, discussed the case with the resident(s), and reviewed entered orders. I agree with the plan of care as outlined in this note, with these additional summaries/recommendations: Patient is a 89-year-old male with a medical history of dementia who presents to [facility] emergency department on 02/06/2025 with chief complaint of altered mental status. Patient seen at bedside. No acute overnight events. Pending placement. Patient seen comfortably resting in bed and in a pleasant mood. Patient is calm and following simple directions. Patient does have underlying severe dementia at baseline. He is unable to complete his ADLs, including preparing food for himself, bathing, or managing medications. 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 I notified case management the patient will need to be discharged to a nursing facility that specializes in dementia as he is high risk for readmission when he develops dementia related psychosis and also daughter is unable to care for patient who requires around the clock care. Insurance reportedly declines placement and will follow-up for a peer to peer review. Continue frequent reorientation to prevent worsening delirium. On admission CT abdomen and pelvis did reveal a significantly distended bladder, bilateral hydronephrosis, and prostatomegaly 6.3 cm. Acute urinary retention secondary to prostatomegaly. Continue Flomax and finasteride. Continue Gonzales catheter. Outpatient follow-up with urology. Urinalysis indicative of urinary tract infection. Continue IV antibiotic. Urine cx showed no growth although patient was taking outpatient antibiotics prior to collection and likely unreliable result. Patient also noted to have significant acute kidney injury with creatinine 5.3 and BUN 52 on admission which has now resolved. Etiology for JAMEY most likely postrenal secondary to prostatomegaly. JAMEY now resolved further supporting diagnosis of postrenal etiology. Case management notified to look into facilities that specialize in managing dementia patients. Please see residents note for additional details of management. Dr. Rupesh MD
[2025-01-15 20:00] VITALS: BP 163/69; PULSE 83; RESP 16; TEMP 36.1; O2SAT 96
--- NOTE | 2025-01-15 20:43 | PC.NURSE ---
Educated patient on the importance of not getting up in bed on his own and to wait for the nurse or foot setter for help. Patient verbalized understanding. Patient's catheter was also assessed due to patient having a chief complaint of blood on the cath site. Dried old blood noticed on the outer portion of the catheter. No blood in urine noticed during assessment. Patient had no complaint of pain and is currently laying comfortably in bed.
[2025-01-16] VITALS: BP 141/68; PULSE 94; RESP 19; TEMP 36.1; O2SAT 97
--- NOTE | 2025-01-16 00:13 | PC.NURSE ---
MD Dr. Shaw contacted regarding patient agitation. MD ordered Ativan 1mg to be given to patient. When attempting to give patient the ordered Ativan, the patient threw mediation on the floor and refused to take ordered medication. Medication was then wasted with witness.
[2025-01-16 04:00] VITALS: BP 157/74; PULSE 62; RESP 18; TEMP 36.6; O2SAT 96
[2025-01-16 08:00] VITALS: BP 132/71; PULSE 60; RESP 16; TEMP 36.3; O2SAT 96
[2025-01-16 10:06] VITALS: BMI 15.0
--- NOTE | 2025-01-16 10:12 | PC.SS ---
SS follow up note; Patient is pending PT evaluation. SS will send PT notes to [facility] once available.
[2025-01-16 12:00] VITALS: BP 155/64; PULSE 61; RESP 17; TEMP 36.4; O2SAT 96
--- NOTE | 2025-01-16 12:18 | PC.SS ---
SS follow up note; SS contacted Yanira from [facility] and informed her that SS send all updated clinicals to Yanira. Yanira informed SS she would review clinicals and would contact SS back with decision. If auth is obtained. Patient will discharge to [facility].
--- NOTE | 2025-01-16 15:49 | PC.SS ---
SS follow up note; SS was contacted by Yanira from [facility] and she informed SS that they are not able to authorize for patient to discharge to [facility] due to facility not being contracted with Insurance. Yanira informed SS that [facility] accepted patient and therefore patient would need to discharge to a contracted facility. SS contacted [facility] and they are able to accept patient SS also contacted patient's daughter, Melissa and she is agreeable to have patient discharge to [facility] tomorrow. ALEXANDRA Provided Yanira from [facility] Keesha's contact number from [facility], . Patient will discharge tomorrow. SS updated Dr. Moody. SS will stand by for further needs.
[2025-01-16 15:50] LABS: Basophils # (Auto) 0.0 Thou/mm3 (0.0-0.2); Basophils % (Auto) 0 % (0-2.5); Eosinophils # (Auto) 0.2 Thou/mm3 (0.0-0.5); Eosinophils % (Auto) 3 % (0-10); Hematocrit 38.2 % (41.0-53.0); Hemoglobin 12.9 g/dL (13.5-16.0); Immature Granulocytes Auto 0.04 Thou/mm3 (0.00-0.00); Lymphocytes # (Auto) 1.7 Thou/mm3 (1.0-4.8); Lymphocytes % (Auto) 21 % (10-50); Mean Corpuscular HGB Conc 33.8 g/dl (31.0-37.0); Mean Corpuscular Hemoglobin 30.4 pg (25.0-35.0); Mean Corpuscular Volume 90 fL (80-100); Monocytes # (Auto) 0.7 Thou/mm3 (0.0-0.8); Monocytes % (Auto) 8 % (0-12); Neutrophils # (Auto) 5.4 Thou/mm3 (1.8-7.7); Neutrophils % (Auto) 67 % (37-80); Nucleated Red Blood Cell # 0.00 Thou/mm3 (0.00-0.00); Nucleated Red Blood Cell % 0 /100 WBC (0); Platelet Count 173 Thou/mm3 (140-440); RDW Standard Deviation 40.6 fL (35.1-43.9); Red Blood Count 4.25 Miln/mm3 (4.50-5.90); White Blood Count 8.1 Thou/mm3 (3.8-10.6)
[2025-01-16 16:00] VITALS: BP 124/87; PULSE 79; RESP 18; TEMP 36.4; O2SAT 96
[2025-01-16 16:08] LABS: Alanine Aminotransferase 35 U/L (10-49); Albumin, Serum 3.6 gm/dL (3.4-4.8); Albumin/Globulin Ratio 1.5 (1.2-2.2); Alkaline Phosphatase 71 U/L (46-116); Anion Gap 9 (7-16); Aspartate Amino Transferase 33 U/L (0-34); BUN/Creatinine Ratio 13 Ratio (12-20); Bilirubin,Total 0.4 mg/dL (0.3-1.2); Blood Urea Nitrogen 10 mg/dL (9-23); Calcium 9.1 mg/dL (8.3-10.6); Calcium (Corrected) 9.4 mg/dL (8.5-10.1); Carbon Dioxide 29.8 mMol/L (20.0-31.0); Chloride 102 mMol/L (98-107); Creatinine (Component) 0.8 mg/dL (0.6-1.3); Estimated Creatinine Clearance 60.4 mL/min (>60); Globulin 2.4 gm/dL (2.3-3.5); Glucose 97 mg/dL (74-106); Osmolality,Calculated 280 (275-295); Potassium 3.9 mMol/L (3.4-5.1); Sodium 141 mMol/L (136-145); Total Protein 6.0 gm/dL (5.7-8.2); eGFR > 60 See Note
--- NOTE | 2025-01-16 17:40 | ESPR_ITS ---
Documentation for date of: 01/16/25 Subjective Subjective Interval history: Overnight, no acute events reported. Patient reportedly was having some erratic behavior, and night team decided to give Ativan however patient refused and threw medication on the floor. Patient seen and examined at bedside. Patient is alert and oriented x [address] Patient is seen with right soft wrist restraints. Patient has been accepted for [facility], pending placement tomorrow. Labs were drawn today, and are unremarkable. Exam Vital Signs Temp Pulse Resp BP Pulse Ox O2 Del Method O2 Flow Rate 97.5 F 79 18 124/87 H 96 Room Air 4 01/16/25 16:00 01/16/25 16:00 01/16/25 16:00 01/16/25 16:01/16/25 16:01/16/25 16:01/15/25 08:20 Narrative Exam General: 89 year old appearing male in no acute distress. Conversational, pleasant and able to answer most questions HEENT: Normocephalic, atraumatic, mucous membranes moist. Rhinophyma Heart: Regular rate and rhythm, no murmurs. Distant heart sounds. Lungs: Clear to auscultation with no wheezing or crackles. No use of accessory muscles. Symmetric chest rise. : Gonzales in place Abdomen: Soft, nondistended, nontender. No guarding or rebound tenderness. Neurologic: Alert and oriented x1 to name, no gross neurological deficit, and patient able to move all 4 extremities. No tremor. Extremities: No pretibial edema. Skin: No rash or ecchymoses. Psychiatric: Appropriate mood and affect Objective Labs 01/17/25 05:08 01/17/25 05:08 Labs: Laboratory Results - last 24 hr 01/16/25 15:36 WBC 8.1 RBC 4.25 L Hgb 12.9 L Hct 38.2 L MCV 90 MCH 30.4 MCHC 33.8 RDW Std Deviation 40.6 Plt Count 173 Neut % (Auto) 67 Lymph % (Auto) 21 Creek % (Auto) 8 Eos % (Auto) 3 Baso % (Auto) 0 Neut # (Auto) 5.4 Lymph # (Auto) 1.7 Creek # (Auto) 0.7 Eos # (Auto) 0.2 Baso # (Auto) 0.0 Immature Gran # (Auto) 0.04 H Absolute Nucleated RBC 0.00 Immature Gran % 1 H Nucleated RBC % 0 Sodium 141 Potassium 3.9 Chloride 102 Carbon Dioxide 29.8 Anion Gap 9 BUN 10 Creatinine 0.8 Estim Creat Clear Calc 60.4 L eGFR > 60 BUN/Creatinine Ratio 13 Glucose 97 Calculated Osmolality 280 Calcium 9.1 Corrected Calcium 9.4 Total Bilirubin 0.4 AST 33 ALT 35 Alkaline Phosphatase 71 Total Protein 6.0 Albumin 3.6 Globulin 2.4 Albumin/Globulin Ratio 1.5 Quality Measures Quality Measures none Advance care planning discussed with:: child Assessment & Plan Assessment Current Active Medications: Generic Name Dose Route Start Last Admin Trade Name Freq PRN Reason Stop Dose Admin Acetaminophen 650 mg 01/10/25 12:36 01/12/25 09:02 Acetaminophen 325 Mg Tablet PO 02/09/25 12:35 650 mg Q6H PRN Administration Fever >101.5 Acetaminophen 650 mg 01/10/25 12:36 Acetaminophen 325 Mg Tablet PO 02/09/25 12:35 Q6H PRN PAIN SCALE 1-3 (mild Amlodipine Besylate 10 mg 01/16/25 09:00 01/16/25 08:28 Amlodipine Besylate 5 Mg Tablet PO 02/15/25 08:59 Not Given QDAY [facility] Finasteride 5 mg 01/10/25 12:45 01/16/25 08:28 Finasteride 5 Mg Tablet PO 02/09/25 12:44 Not Given QDAY [facility] Ondansetron HCl 4 mg 01/10/25 12:36 Ondansetron Inj 2 Mg/Ml Inj 2 Ml IVP 02/09/25 12:35 Q6H PRN NAUSEA OR VOMITING Protocol Sennosides 1 tab 01/16/25 09:00 01/16/25 08:28 Senna Tablet PO 02/15/25 08:59 Not Given QDAY [facility] Protocol Tamsulosin HCl 0.4 mg 01/10/25 12:45 01/16/25 08:28 Tamsulosin Hcl 0.4 Mg Capsule PO 02/09/25 12:44 Not Given QDAY [facility] Plan 89M with PMH of worsening dementia brought in from home in [place] for evaluation of aggressive and violent behavior x2 days. Found to have urinary retention, JAMEY and UTI admitted for acute encephalopathy secondary to post renal JAMEY vs UTI management. #Dementia with psychotic like features #Delirium Spoke with family about patient's underlying dementia with need of more care. Family has agreed for placing patient into a [facility] facility. Underlying causes for AMS listed below. No active infection. Patient given Ativan and diazepam more than 24 hours ago -Avoid sedating medications -Redirect as necessary -Wrist restraints if needed -Patient is awaiting placement at a special facility to help with patient's above behavioral problems related to his chronic dementia #Acute encephalopathy secondary to post renal urinary retention (resolved) vs #UTI #JAMEY (Resolved) #Mild to moderate hydronephrosis #Prostatomegaly Most of the hx was provided by pt's daughter since he is A&Ox2. Patient has become more aggressive and violent x2 days. Patient is not on any medications for his dementia. Recently diagnosed with UTI by PCP and prescribed with Macrobid, questionable if he has taken his medication correctly. UA positive for RBCs, leukocyte esterase, nitrites, WBCs and rare bacteria. Patient was noted to have urinary retention with 1100cc dark colored urine draining from the gonzales that was placed in the ED. CTAB shows Mild to moderate hydronephrosis likely secondary to markedly distended urinary bladder. Marked prostatomegaly which may be producing the urinary bladder versus vesicoureteral reflux and urinary tract infection. Cr of 5.3 (baseline of 0.8), BUN 52, WBC 12.7, CRP 8.7. Unremarkable head CT. Patient acute mental status changes could be due to acute encephalopathy in the setting of worsening dementia secondary to urinary retention 2/2 post renal prostatomegaly vs UTI. Patient JAMEY most likely due to post renal prostatomegaly vs dehydration. Patient's Cr improved to 0.8 and leukocytosis resolved to 8.4. Blood culture and urine culture negative, however it is notable that his urine sample was collected after initiation of antibiotics in the ED. - Continue with gonzales catheter - Strict I&Os - Renal diet - IVF NS maintenance - Continue Rocephin 1g qday (01/10/25-01/15) - Continue Flomax 0.4 qday - Continue Finesteride 5 qday (01/10/25) -Follow-up with urology outpatient for his indwelling Gonzales cath - Pending SNF placement -pending speech eval - CTM renal panel - Patient will need to follow up with an Urologist outpatient in regards to their prostatomegaly #Subclinical Hyperthyroidism TSH:0.46. Patient is asymptomatic. - Follow up outpatient Health Maintenance: Lines: peripheral IV, gonzales catheter Diet: Renal diet DVT prophylaxis: SCDs Disposition: Pending placement to special facility for his dementia related to psychotic features CODE STATUS: DNR Patient's plan and care discussed with my attending, Dr. Rocael Manzo MD PGY-3 Attending Provider Attestation/Addendum I have discussed and was present for the essential components of the history, physical examination, diagnosis, and treatment plan with the resident. I agree with the patient's care as documented by the resident and amended herein by me. Jasper Cote DO. Although this document has been carefully reviewed, there may still be some phonetic and other typographical errors. These errors are purely grammatical due to imperfections in the software program and should not be construed in any way to compromise the substance of the patient's medical care during this visit.
[2025-01-16 20:00] VITALS: BP 168/71; PULSE 74; RESP 18; TEMP 36.2; O2SAT 94
[2025-01-17] VITALS: BP 150/73; PULSE 65; RESP 18; TEMP 36.7; O2SAT 98
[2025-01-17 04:00] VITALS: BP 161/65; PULSE 56; RESP 18; TEMP 36.9; O2SAT 95
[2025-01-17 05:48] LABS: Basophils # (Auto) 0.1 Thou/mm3 (0.0-0.2); Basophils % (Auto) 1 % (0-2.5); Eosinophils # (Auto) 0.4 Thou/mm3 (0.0-0.5); Eosinophils % (Auto) 4 % (0-10); Hematocrit 37.6 % (41.0-53.0); Hemoglobin 12.8 g/dL (13.5-16.0); Immature Granulocytes Auto 0.07 Thou/mm3 (0.00-0.00); Lymphocytes # (Auto) 2.4 Thou/mm3 (1.0-4.8); Lymphocytes % (Auto) 25 % (10-50); Mean Corpuscular HGB Conc 34.0 g/dl (31.0-37.0); Mean Corpuscular Hemoglobin 31.1 pg (25.0-35.0); Mean Corpuscular Volume 91 fL (80-100); Monocytes # (Auto) 0.9 Thou/mm3 (0.0-0.8); Monocytes % (Auto) 9 % (0-12); Neutrophils # (Auto) 5.9 Thou/mm3 (1.8-7.7); Neutrophils % (Auto) 61 % (37-80); Nucleated Red Blood Cell # 0.00 Thou/mm3 (0.00-0.00); Nucleated Red Blood Cell % 0 /100 WBC (0); Platelet Count 189 Thou/mm3 (140-440); RDW Standard Deviation 41.0 fL (35.1-43.9); Red Blood Count 4.12 Miln/mm3 (4.50-5.90); White Blood Count 9.7 Thou/mm3 (3.8-10.6)
[2025-01-17 06:08] LABS: Alanine Aminotransferase 30 U/L (10-49); Albumin, Serum 3.6 gm/dL (3.4-4.8); Albumin/Globulin Ratio 1.6 (1.2-2.2); Alkaline Phosphatase 67 U/L (46-116); Anion Gap 9 (7-16); Aspartate Amino Transferase 24 U/L (0-34); BUN/Creatinine Ratio 13 Ratio (12-20); Bilirubin,Total 0.5 mg/dL (0.3-1.2); Blood Urea Nitrogen 10 mg/dL (9-23); Calcium 9.1 mg/dL (8.3-10.6); Calcium (Corrected) 9.4 mg/dL (8.5-10.1); Carbon Dioxide 29.0 mMol/L (20.0-31.0); Chloride 103 mMol/L (98-107); Creatinine (Component) 0.8 mg/dL (0.6-1.3); Estimated Creatinine Clearance 60.4 mL/min (>60); Globulin 2.2 gm/dL (2.3-3.5); Glucose 104 mg/dL (74-106); Osmolality,Calculated 280 (275-295); Potassium 3.9 mMol/L (3.4-5.1); Sodium 141 mMol/L (136-145); Total Protein 5.8 gm/dL (5.7-8.2); eGFR > 60 See Note
[2025-01-17 08:00] VITALS: BP 140/62; PULSE 68; RESP 17; TEMP 36.2; O2SAT 95
--- NOTE | 2025-01-17 08:53 | PC.SS ---
Addendum entered by Mely Hay 01/17/25 11:22: SS follow up note; SS was contacted by [email or web address] reporting that ETA is for [id number]. SS contacted Yanira to remind her to sent hard copy to Keesha. SS contacted [facility] and provided Auth # [id number]. SS updated Keesha with ETA as well as patient's nurse Nile and patient's daughter, Melissa. Original Note: SS follow up note; SS contacted Keesha from [facility] and she reported she has not received auth as of now from [facility]. SS contacted Yanira from [facility] and she informed SS she would be faxing authorization. Keesha informed SS to go forward with setting up transportation. SS contacted [employer] to set up transportation for patient, they informed SS they would contact SS back with ETA. SS will update patient's nurse and patient's daughter, Melissa.
[2025-01-17 12:00] VITALS: BP 125/54; PULSE 58; RESP 16; TEMP 36.6; O2SAT 97
[2025-01-17 14:51] VITALS: BP 126/76; PULSE 63; RESP 17; TEMP 36.7; O2SAT 96
--- NOTE | 2025-01-17 15:08 | PC.SS ---
SS follow up note; SS was contacted by [email or web address] and informed SS ETA changed for [id number]. SS updated patient's nurse and Keesha from [facility] in [place].
[2025-01-17 16:00] VITALS: BP 142/62; PULSE 58; RESP 17; TEMP 36.3; O2SAT 95
--- NOTE | 2025-01-17 17:40 | ESDS_ITS ---
<Statement entered by Dinah Manzo MD - 01/19/25 15:54> I discussed with and supervised the sport internship physician who took care of this patient. I personally saw and examined the patient and discussed the assessment and plan with the entire medicine team, including my attending Dr. Cote, I agree with most of the assessment and plan as documented below Dinah Manzo M.D. PGY-3 Disclaimer: Despite multiple revisions, due to the dictation software being used, the document bellow may not be free of grammatical errors including phonetic/typographic errors. However, this does not deter from our commitment to providing health care in the patient's best interest in mind. Planned Discharge Date 01/17/25 DS: Providers Provider Date of admission: 01/10/25 12:37 Primary care physician: Physician No Primary/Family Admitting Provider: Isael Goddard MD Attending Provider on Admission: Isael Goddard MD Consults: 01/10/25 07:41 Referral Physical Therapy Stat Comment: Physician Instructions: Instructions: SNF place 01/15/25 17:09 Referral Speech Therapy Routine Comment: speech evaluation Attending Provider on DC: Isael Goddard MD Discharging Provider: Isael Goddard MD DS: Diagnosis Problem List Completed Was Problem List Reviewed/Reconciled?: Yes Hospital Course Hospital Course Hospital course: Admission Diagnoses * Acute encephalopathy * Acute kidney injury (JAMEY), post-renal vs prerenal * Urinary tract infection (UTI) * Urinary retention * 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 On presentation, he was found to have urinary retention, acute kidney injury, and urinary tract infection. He was admitted for acute encephalopathy, suspected secondary to post-renal JAMEY versus UTI. Hospital Course During hospitalization, the patient?s encephalopathy and behavioral changes were managed with supportive care and occasional benzodiazepine use.Head CT unremarkable, CTAP with markedly enlarged prostate, with mild to moderate hydronephrosis secondary to obstruction. Blood cultures and Urine cultures with no growth to date. Urinary retention was identified as a significant contributor, and a Gonzales catheter was placed with subsequent improvement in ment al status. He was initiated on tamsulosin (Flomax) and finasteride for bladder outlet obstruction and will require outpatient urology follow-up, as he remains discharged with a Gonzales catheter in place. cConcern for UTI was treated with IV ceftriaxone for 5 days. His JMAEY resolved with relief of obstruction gonzales catheter in place. Given his persistent dementia with psychotic-like features, waxing and waning delirium, and unsafe behavior at home he was recommended to go to nursing facility. Family agreed to placement at a [facility] facility for ongoing care and supervision. Condition on Discharge * Hemodynamically stable * Baseline dementia with intermittent delirium; requires supervision * Gonzales catheter in place, draining appropriately * Aggression improved but ongoing risk of behavioral disturbances Discharge Medications * Tamsulosin 0.4 mg daily * Finasteride 5 mg daily * Amlodipine 10 mg daily * Continue home medications (see medication reconciliation list) Follow-Up * Urology: outpatient follow-up for evaluation of urinary retention and management of Gonzales catheter, exchange catheter every 4-6 weeks * Primary care provider: within 1?2 weeks * Nursing facility physician oversight for ongoing medical and behavioral care Discharge Instructions * Patient discharged to nursing facility * Monitor Gonzales catheter output and signs of infection, exchange every 4 weeks * Watch for recurrence of encephalopathy, fever, dysuria, or behavioral escalation * Encourage hydration, nutrition, and medication adherence Plan discussed with Dr Manzo, and Dr. Rupesh Matias MD PGY1 Time Spent with Patient Time attestation: Total time spent providing and/or coordinating discharge services: Time spent: Greater than 30 minutes Exam Vital Signs Temp Pulse Resp BP Pulse Ox O2 Del Method O2 Flow Rate 97.5 F 79 18 124/87 H 96 Room Air 4 01/16/25 16:00 01/16/25 16:00 01/16/25 16:00 01/16/25 16:01/16/25 16:01/16/25 16:01/15/25 08:20 Narrative Exam General: 89 year old appearing male in no acute distress. Conversational, pleasant and able to answer most questions HEENT: Normocephalic, atraumatic, mucous membranes moist. Rhinophyma Heart: Regular rate and rhythm, no murmurs. Distant heart sounds. Lungs: Clear to auscultation with no wheezing or crackles. No use of accessory muscles. Symmetric chest rise. : Gonzales in place Abdomen: Soft, nondistended, nontender. No guarding or rebound tenderness. Neurologic: Alert and oriented x1 to name, no gross neurological deficit, and patient able to move all 4 extremities. No tremor. Extremities: No pretibial edema. Skin: No rash or ecchymoses. Psychiatric: Appropriate mood and affect Discharge Plan Plan Patient Disposition: Xfer Skilled Nsg Fac (SNF) Patient condition on transfer: Stable Prescriptions/Referrals Prescriptions/Med Rec: New tamsulosin 0.4 mg Capsule 0.4 mg PO QDAY 30 Days Qty: 30 0RF finasteride 5 mg Tablet 5 mg PO QDAY 30 Days Qty: 30 0RF amlodipine 10 mg tablet 10 mg PO QDAY 30 Days Qty: 30 0RF Discontinued nitrofurantoin monohyd/m-cryst 100 mg capsule 100 mg PO Q12H Patient Comments: TAKE ONE CAPSULE BY MOUTH EVERY TWELVE HOURS WITH FOOD FOR URINARY TRACT INFECTION No Action phenazopyridine 100 mg tablet 100 mg PO Q8H PRN (Reason: bladder pain) Patient Comments: TAKE ONE TABLET BY MOUTH THREE TIMES DAILY NEEDED FOR BLADDER pain Referrals: No Primary/Family,Physician [Primary Care Provider] Patient/Caregiver Discharge Instructions Other Discharge Activity Instructions:: Please take your new medications: Amlodipine 10mg once daily, Finasteride 5mg daily, and Tamsulosin 0.4mg once daily Please see your PCP within 1 week Please see a urologist for your indwelling gonzales catheter, and must be exchanged every 4-6 weeks Please return to the ED if your symptoms worsen Print Language: [place]ese Stand Alone Forms: [employer] Award Info., Patient Portal Info Letter Discharge Order Discharge Orders: Discharge (Routine); Ordered 01/16/25 Ordered By: Dinah Manzo Quality Discharge Quality Measures VTE prophylaxis Attestestation Attestation I have discussed and was present for the essential components of the discharge history, physical examination, diagnosis, and discharge treatment plan with the resident. I agree with the patient's discharge care as documented by the resident and amended herein by me. Jasper Cote, . The patient understood all discharge instructions, all questions were answered satisfactorily. The patient was instructed to return to the Emergency Department is symptoms worsened or persisted. Although this document has been carefully reviewed, there may still be some phonetic and other typographical errors. These errors are purely grammatical due to imperfections in the software program and should not be construed in any way to compromise the substance of the patient's medical care during this visit.
== END 2025-01-17 16:35 | disposition skilled nursing facility (03) | DRG 699 ==
LOC: SERX 12:03 → SERHOLD 12:47 → S3SX 01-11 05:39
PROVIDERS: Emergency Medicine; Admitting Provider Student in an Organized Health Care Education/Training Program; Visit Provider Student in an Organized Health Care Education/Training Program
DX: N32.0 Bladder-neck obstruction (principal); F03.C11 Unspecified dementia, severe, with agitation; N39.0 Urinary tract infection, site not specified; G93.49 Other encephalopathy; F03.C18 Unspecified dementia, severe, with other behavioral disturbance; F03.C2 Unspecified dementia, severe, with psychotic disturbance; N17.9 Acute kidney failure, unspecified; R33.9 Retention of urine, unspecified; E05.90 Thyrotoxicosis, unspecified without thyrotoxic crisis or storm; N40.0 Benign prostatic hyperplasia without lower urinary tract symptoms; R33.8 Other retention of urine; Z66 Do not resuscitate; Z78.1 Physical restraint status; Z87.891 Personal history of nicotine dependence
CPT/HCPCS: 36415; 70450; 71045; 71250; 72131; 74176; 80053; 80307; 80320; 80329; 81001; 82010; 82248; 83605; 83690; 83735; 83880; 84100; 84145; 84439; 84443; 84481; 84484; 85025; 85652; 86140; 87040; 87086; 87400; 87811; 92523; 93005; 93225; 96127; 96361; 96365; 97162; 99284; A4649; J0696; J3360; J3475; J7030; A9270; G0480